=== PATIENT | female | born 1950 | race Caucasian/White ===

== ENCOUNTER 2018-09-07 14:57 | Observation (INO) ==
[2018-09-07 15:04] VITALS: BMI 29.7
[2018-09-07 15:35] LABS: BASOPHILS # (AUTO) 0.1 X10^3/uL (0.0-0.1); EOSINOPHILS # (AUTO) 0.2 x10^3/uL (0.0-0.2); EOSINOPHILS % (AUTO) 1.7 % (0.9-2.9); HEMOGLOBIN 14.3 g/dL (12.0-16.0); LYMPHOCYTES # (AUTO) 3.7 X10^3/uL (1.3-2.9); LYMPHOCYTES % (AUTO) 38.1 % (21.0-51.0); MEAN CORPUSCULAR HEMOGLOBIN 29.4 pg (27.0-34.0); MEAN CORPUSCULAR VOLUME 86.3 fL (80.0-100.0); MEAN PLATELET VOLUME 9.2 fL (7.4-11.0); MONOCYTES # (AUTO) 0.8 x10^3/uL (0.3-0.8); MONOCYTES % (AUTO) 8.4 % (0.0-13.0); NEUTROPHILS % (AUTO) 50.8 % (42.0-75.0); PLATELET COUNT 232 X10^3/uL (150.0-450.0); RED BLOOD COUNT 4.88 X10^6/uL (3.5-5.4); RED CELL DISTRIBUTION WIDTH 14.2 % (11.6-16.5); WHITE BLOOD COUNT 9.8 X10^3/uL (3.6-10.0)
[2018-09-07] MEDS ORDERED: ZOFRAN INJ 4 MG VIAL IVP ONE (15:46)
[2018-09-07] MEDS ORDERED: ZOFRAN INJ 4 MG VIAL ONE (15:47)
[2018-09-07 15:50] LABS: BLOOD UREA NITROGEN 18 mg/dL (7-18); CALCIUM 8.8 mg/dL (8.5-10.1); CARBON DIOXIDE 24.6 mmol/L (21-32); CHLORIDE 103 mmol/L (98-107); CREATININE 0.93 mg/dL (0.55-1.02); SODIUM 138 mmol/L (136-145); TROPONIN I < 0.02 ng/mL (0-1.5); eGFR NON BLACK RACES > 60 (>60)
[2018-09-07 15:55] LABS: ALANINE AMINOTRANSFERASE 42 Units/L (12-78); ALBUMIN 3.7 g/dL (3.4-5.0); ALKALINE PHOSPHATASE 82 Units/L (46-116); ASPARTATE AMINO TRANSFERASE 26 Units/L (15-37); CKMB % 1.3 % (<4); CREATINE KINASE 96 Units/L (26-192); CREATINE KINASE MB 1.2 ng/mL (0-4.0); MAGNESIUM 2.1 mg/dL (1.7-2.9); TOTAL PROTEIN 7.6 g/dL (6.4-8.2)
--- NOTE | 2018-09-07 15:58 | RAD ---
Examination: Portable AP chest History: Chest pain Findings: Normal heart size, arteriosclerotic aortic arch, clear lungs and pleural spaces. Sternal wi res are present. Impression: Postsurgical findings. No acute cardiac, pulmonary or pleural lesion demonstrated. Reported By:
--- NOTE | 2018-09-07 17:34 | DR.GENAD ---
HPI Time Seen Time Seen by Provider: 09/07/18 15:11 PCP Primary Care Physician: JOE Complaint/Symptoms Chief Complaint Doctors Comments: Patient admit to concerns of her heart. She admits to feeling funny in her left chest, denies pain maybe pressure. No radiation. Admit to Aortic valve replacement , [place]. Denies family history of heart disease. Chief Complaint:: PT STATED SHE HAS BEEN FEELING FUNNY IN HER CHEST AND FEELS LIKE HER HEART HAS BEEN RACING SINCE LAST NIGHT Source History Provided: Patient Mode of Arrival Mode of Arrival: Ambulatory Timing Onset of Chief Complaint: 09/06/18 PMH PMH Past Medical History: Yes Past Medical History: Anxiety, Arthritis and Hypertension Past Surgical History: Yes Surgical History: Cholecystectomy, Hysterectomy, Ortho Surgery and Other Past Surgical History Comment: HEART VALVE REPLACEMENT Family History History of Family Medical Conditions: No Social History Does patient currently use any type of tobacco product: No Have you used tobacco products in the last 12 months: No Type of Tobacco Use: None Does any household member use tobacco: No Alcohol Use: None Do you use any recreational Drugs:: No Lives With: Family Lives Where: Home infectious screening In the last 2 months have you had wt loss of >10#?: NO Have you had fever, night sweats or hemotysis?: No Have you traveled outside the country in the last 6 months?: No Isolation: Standard PE Vital Signs Vitals: Temperature 98.3 F Pulse Rate [Left Brachial] 74 Pulse Rate 87 Respiratory Rate 20 Blood Pressure [Left Arm] 151/67 Blood Pressure 175/80 O2 Sat by Pulse Oximetry 97 General Limitations: No Limitations General Appearance: Alert and In No Apparent Distress Head Head Exam: Normal Inspection, Atraumatic and Normocephalic Eyes Eye exam: Normal Appearance, PERRL and EOMI ENT ENT Exam: Normal Exam External Ear Exam: Normal External Inspection and Other TM/Canal Exam: Bilateral: Normal Nose Exam: Normal Nose Exam Mouth Exam: Normal Inspection Throat Exam: Normal Inspection Neck Neck Exam: Normal Inspection and Full ROM Chest Chest Inspection: Normal Inspection and Symmetric Chest Wall Rise Respiratory Respiratory Exam: Normal Lung Sounds Bilat Respiratory Exam: Bilateral: Clear to Auscultation Cardiovascular Cardiovascular Exam: Regular Rate and Normal Rhythm Abdominal Exam Abdominal Exam: Normal Inspection, Normal Bowel Sounds and Soft Abdominal Tenderness: negative RUQ, RLQ, LUQ and LLQ Extremities Extremities Exam: Normal Inspection and Full ROM Back Back Exam: Normal Inspection and Full ROM Neurologic Neurological Exam: Alert, Oriented X3 and CN II-XII Intact Psychiatric Psychiatric Exam: Normal Affect, Normal Mood and Depressed Skin Skin Exam: Warm, Dry, Intact and Normal Color COURSE Consultation Called: 17:10 Consultation Comments: Dr. Azevedo agreed to admit for chest pain protocol ROR Labs Reviewed Laboratory Results Reviewed?: Yes Result Diagrams: 09/09/18 04:30 09/09/18 04:30 Laboratory: WBC 6.4 X10^3/uL (3.6-10.0) 09/09/18 04:30 RBC 4.46 X10^6/uL (3.5-5.4) 09/09/18 04:30 Hgb 12.9 g/dL (12.0-16.0) 09/09/18 04:30 Hct 39.0 % (36.0-47.0) 09/09/18 04:30 MCV 87.4 fL (80.0-100.0) 09/09/18 04:30 MCH 28.9 pg (27.0-34.0) 09/09/18 04:30 MCHC 33.0 g/dL (33.0-35.0) 09/09/18 04:30 RDW 14.5 % (11.6-16.5) 09/09/18 04:30 Plt Count 189 X10^3/uL (150.0-450.0) 09/09/18 04:30 MPV 9.8 fL (7.4-11.0) 09/09/18 04:30 Neut % (Auto) 50.6 % (42.0-75.0) 09/09/18 04:30 Lymph % (Auto) 36.1 % (21.0-51.0) 09/09/18 04:30 [place] % (Auto) 10.1 % (0.0-13.0) 09/09/18 04:30 Eos % (Auto) 2.6 % (0.9-2.9) 09/09/18 04:30 Baso % (Auto) 0.6 % (0.2-1.0) 09/09/18 04:30 Neut # (Auto) 3.3 x10^3/uL (2.2-4.8) 09/09/18 04:30 Lymph # (Auto) 2.3 X10^3/uL (1.3-2.9) 09/09/18 04:30 [place] # (Auto) 0.6 x10^3/uL (0.3-0.8) 09/09/18 04:30 Eos # (Auto) 0.2 x10^3/uL (0.0-0.2) 09/09/18 04:30 Baso # (Auto) 0.0 X10^3/uL (0.0-0.1) 09/09/18 04:30 Absolute Nucleated RBC 0.1 /100WBC 09/09/18 04:30 INR Target Range - 09/07/18 15:20 INR 0.93 (0.8-1.3) 09/07/18 15:20 APTT 28.4 SECONDS (22.9-36.5) 09/07/18 15:20 PTT Comment - 09/07/18 15:20 Sodium 143 mmol/L (136-145) 09/09/18 04:30 Corrected Sodium TNP 09/09/18 04:30 Potassium 4.5 mmol/L (3.5-5.1) 09/09/18 04:30 Chloride 109 mmol/L (98-107) H 09/09/18 04:30 Carbon Dioxide 26.1 mmol/L (21-32) 09/09/18 04:30 BUN 14 mg/dL (7-18) 09/09/18 04:30 Creatinine 0.90 mg/dL (0.55-1.02) 09/09/18 04:30 Est GFR (MDRD) Af Amer > 60 (>60) 09/09/18 04:30 Est GFR (MDRD) Non-Af > 60 (>60) 09/09/18 04:30 Glucose 108 mg/dL (65-99) H 09/09/18 04:30 Calcium 8.3 mg/dL (8.5-10.1) L 09/09/18 04:30 Corrected Calcium 9.2 mg/dL (8.5-10.1) 09/09/18 04:30 Magnesium 2.1 mg/dL (1.7-2.9) 09/08/18 03:07 Total Bilirubin 0.20 mg/dL (0.2-1.0) 09/09/18 04:30 AST 19 Units/L (15-37) 09/09/18 04:30 ALT 33 Units/L (12-78) 09/09/18 04:30 Alkaline Phosphatase 69 Units/L (46-116) 09/09/18 04:30 Creatine Kinase 80 Units/L (26-192) 09/08/18 03:07 CK-MB (CK-2) < 1.0 ng/mL (0-4.0) 09/08/18 03:07 CK/CKMB % Calc 1.3 % (<4) 09/08/18 03:07 Troponin I < 0.02 ng/mL (0-1.5) 09/08/18 03:07 Total Protein 6.3 g/dL (6.4-8.2) L 09/09/18 04:30 Albumin 2.9 g/dL (3.4-5.0) L 09/09/18 04:30 Globulin 3.4 g/dL (2.5-4.5) 09/09/18 04:30 Albumin/Globulin Ratio 0.9 Ratio (1.1-2.1) L 09/09/18 04:30 Triglycerides 95 mg/dL (0-150) 09/08/18 03:07 Cholesterol 164 mg/dL (0-200) 09/08/18 03:07 LDL Cholesterol, Calc 98 mg/dL (0-100) 09/08/18 03:07 HDL Cholesterol 47 mg/dL (40-60) 09/08/18 03:07 Cholesterol/HDL Ratio 3.5 (0.0-5.0) 09/08/18 03:07 Specimen Type Clean catch urine 09/07/18 21:25 Urine Color Yellow (YELLOW) 09/07/18 21: Urine Appearance Clear (CLEAR) 09/07/18 21: Urine pH 5.0 (5.0 - 8.0) 09/07/18: Ur Specific Issue 1.020 (1.000-1.030) 09/07/18 21: Urine Protein 1+ (NEGATIVE) 09/07/18 21:25 Urine Glucose (UA) Negative (NEGATIVE) 09/07/18 21: Urine Ketones Negative (NEGATIVE) 09/07/18 21:25 Urine Occult Blood 1+ (NEGATIVE) 09/07/18 21:25 Urine Nitrite Negative (NEGATIVE) 09/07/18 21:25 Urine Bilirubin Negative (NEGATIVE) 09/07/18 21:25 Urine Urobilinogen Normal (NORMAL) 09/07/18 21:25 Ur Leukocyte Esterase 1+ (NEGATIVE) 09/07/18 21:25 Urine RBC 0-2 /HPF (NONE SEEN) 09/07/18 21:25 Urine WBC 0-2 /HPF (NONE SEEN) 09/07/18 21:25 Ur Squamous Epith Cells Few /HPF (NEGATIVE) 09/07/18 21:25 Urine Bacteria Negative /HPF (NEGATIVE) 09/07/18 21:25 Ur Culture Indicated? No/not indicated 09/07/18 21:25 XRAY XRAY Findings: Chest: no acute abnormality Diagnosis Discharge Problem: Chest pain, rule out acute myocardial infarction ADDITIONAL NOTES Additional Notes Additional Notes: Patient admitted for chest pain protocol
[2018-09-07] MEDS ORDERED: MORPHINE SULFATE INJ 2 MG INJ IVP PRN (18:11)
[2018-09-07] MEDS: NS 1000 ML 1,000 ML IV SCH (18:27)
[2018-09-07] MEDS ORDERED: FLUVIRIN IM ONE (20:00)
[2018-09-07 21:21] LABS: CREATINE KINASE 78 Units/L (26-192); CREATINE KINASE MB < 1.0 ng/mL (0-4.0); TROPONIN I < 0.02 ng/mL (0-1.5)
[2018-09-07 21:27] LABS: CKMB % 1.3 % (<4)
[2018-09-07 21:44] LABS: BILIRUBIN,URINE NEGATIVE (NEGATIVE); BLOOD/HEMOGLOBIN,URINE 1+ (NEGATIVE); GLUCOSE, URINE NEGATIVE (NEGATIVE); KETONES,URINE NEGATIVE (NEGATIVE); LEUKOCYTE ESTERASE ,URINE 1+ (NEGATIVE); NITRITES,URINE NEGATIVE (NEGATIVE); PROTEIN,URINE 1+ (NEGATIVE); UROBILINOGEN,URINE NORMAL (NORMAL)
[2018-09-07 21:50] LABS: APPEARANCE,URINE CLEAR (CLEAR); COLOR,URINE YELLOW (YELLOW)
[2018-09-07 21:51] LABS: BACTERIA,URINE NEGATIVE /HPF (NEGATIVE); RBC,URINE 0-2 /HPF (NONE SEEN); SQUAMOUS EPITHELIAL CELL,UR FEW /HPF (NEGATIVE)
[2018-09-07] MEDS: TYLENOL 325 MG TAB PO PRN (22:00)
[2018-09-08 03:20] LABS: BASOPHILS # (AUTO) 0.1 X10^3/uL (0.0-0.1); BASOPHILS % (AUTO) 1.2 % (0.2-1.0); EOSINOPHILS # (AUTO) 0.2 x10^3/uL (0.0-0.2); HEMATOCRIT 40.7 % (36.0-47.0); HEMOGLOBIN 13.7 g/dL (12.0-16.0); LYMPHOCYTES # (AUTO) 3.5 X10^3/uL (1.3-2.9); LYMPHOCYTES % (AUTO) 45.1 % (21.0-51.0); MEAN CORPUSCULAR HEMOGLOBIN 29.2 pg (27.0-34.0); MEAN CORPUSCULAR HGB CONC 33.6 g/dL (33.0-35.0); MEAN CORPUSCULAR VOLUME 86.7 fL (80.0-100.0); MEAN PLATELET VOLUME 9.2 fL (7.4-11.0); MONOCYTES # (AUTO) 0.7 x10^3/uL (0.3-0.8); MONOCYTES % (AUTO) 9.2 % (0.0-13.0); NEUTROPHILS # (AUTO) 3.3 x10^3/uL (2.2-4.8); NEUTROPHILS % (AUTO) 42.5 % (42.0-75.0); PLATELET COUNT 208 X10^3/uL (150.0-450.0); RED CELL DISTRIBUTION WIDTH 14.6 % (11.6-16.5); WHITE BLOOD COUNT 7.7 X10^3/uL (3.6-10.0)
[2018-09-08 03:39] LABS: ALANINE AMINOTRANSFERASE 37 Units/L (12-78); ALBUMIN 3.3 g/dL (3.4-5.0); ALKALINE PHOSPHATASE 76 Units/L (46-116); ASPARTATE AMINO TRANSFERASE 24 Units/L (15-37); BLOOD UREA NITROGEN 16 mg/dL (7-18); CALCIUM 8.4 mg/dL (8.5-10.1); CARBON DIOXIDE 26.7 mmol/L (21-32); CHLORIDE 107 mmol/L (98-107); CHOL/HDL RATIO 3.5 (0.0-5.0); CHOLESTEROL 164 mg/dL (0-200); CKMB % 1.3 % (<4); CREATINE KINASE 80 Units/L (26-192); CREATINE KINASE MB < 1.0 ng/mL (0-4.0); CREATININE 1.02 mg/dL (0.55-1.02); HDL CHOLESTEROL 47 mg/dL (40-60); MAGNESIUM 2.1 mg/dL (1.7-2.9); SODIUM 142 mmol/L (136-145); TOTAL PROTEIN 6.9 g/dL (6.4-8.2); TRIGLYCERIDES 95 mg/dL (0-150); TROPONIN I < 0.02 ng/mL (0-1.5); eGFR NON BLACK RACES 57 (>60)
[2018-09-08] MEDS: NS 1000 ML 1,000 ML IV SCH ×2 (06:10→20:12)
[2018-09-08] MEDS: TYLENOL 325 MG TAB PO PRN (08:16)
[2018-09-08] MEDS: CELEXA PO SCH (08:17)
[2018-09-08] MEDS: ZETIA TAB 10 MG PO SCH (08:17)
[2018-09-08] MEDS: ASPIRIN EC 81 MG PO SCH (08:17)
[2018-09-08] MEDS ORDERED: ZESTRIL TAB 10 MG PO SCH (09:00)
[2018-09-08] MEDS: FIORICET TAB PO PRN ×2 (12:46→23:40)
[2018-09-08] MEDS: TOPROL XL PO SCH (14:16)
[2018-09-09 05:21] LABS: BASOPHILS % (AUTO) 0.6 % (0.2-1.0); EOSINOPHILS # (AUTO) 0.2 x10^3/uL (0.0-0.2); EOSINOPHILS % (AUTO) 2.6 % (0.9-2.9); HEMOGLOBIN 12.9 g/dL (12.0-16.0); LYMPHOCYTES # (AUTO) 2.3 X10^3/uL (1.3-2.9); LYMPHOCYTES % (AUTO) 36.1 % (21.0-51.0); MEAN CORPUSCULAR HEMOGLOBIN 28.9 pg (27.0-34.0); MEAN CORPUSCULAR VOLUME 87.4 fL (80.0-100.0); MEAN PLATELET VOLUME 9.8 fL (7.4-11.0); MONOCYTES # (AUTO) 0.6 x10^3/uL (0.3-0.8); MONOCYTES % (AUTO) 10.1 % (0.0-13.0); NEUTROPHILS # (AUTO) 3.3 x10^3/uL (2.2-4.8); NEUTROPHILS % (AUTO) 50.6 % (42.0-75.0); PLATELET COUNT 189 X10^3/uL (150.0-450.0); RED BLOOD COUNT 4.46 X10^6/uL (3.5-5.4); RED CELL DISTRIBUTION WIDTH 14.5 % (11.6-16.5); WHITE BLOOD COUNT 6.4 X10^3/uL (3.6-10.0)
[2018-09-09 05:29] LABS: ALANINE AMINOTRANSFERASE 33 Units/L (12-78); ALBUMIN 2.9 g/dL (3.4-5.0); ALKALINE PHOSPHATASE 69 Units/L (46-116); ASPARTATE AMINO TRANSFERASE 19 Units/L (15-37); BLOOD UREA NITROGEN 14 mg/dL (7-18); CALCIUM 8.3 mg/dL (8.5-10.1); CARBON DIOXIDE 26.1 mmol/L (21-32); CHLORIDE 109 mmol/L (98-107); COR CA(FOR HYPOALB) 9.2 mg/dL (8.5-10.1); SODIUM 143 mmol/L (136-145); TOTAL PROTEIN 6.3 g/dL (6.4-8.2); eGFR NON BLACK RACES > 60 (>60)
[2018-09-09] MEDS: ZETIA TAB 10 MG PO SCH (08:24)
[2018-09-09] MEDS: ASPIRIN EC 81 MG PO SCH (08:24)
[2018-09-09] MEDS: TOPROL XL PO SCH (08:24)
[2018-09-09] MEDS: CELEXA PO SCH (08:25)
--- NOTE | 2018-09-09 09:59 | DR.CONSULT ---
CONSULT Consultation for Day of: Date: 09/09/18 Chief Complaint Chief Complaint: Full consult dictated please see the dictated report. Allergies Allergies Allergy/AdvReac Type Severity Reaction Status Date / Time Penicillins Allergy Verified 09/07/18 14:58 Past Medical History Past Medical History: Anxiety, Arthritis and Hypertension Past Surgical History Surgical History: Cholecystectomy, Hysterectomy, Ortho Surgery and Other Family History Family Medical History: Coronary Artery Disease and Heart Failure Social History Does patient currently use any type of tobacco product: No Have you used tobacco products in the last 12 months: No Type of Tobacco Use: None How many years tobacco product used: 20 Does any household member use tobacco: No Alcohol Use: None Drug Use: None Medications Home Medications: Penicillins Allergy (Verified 09/07/18 14:58) CONTINUE taking the following medications aspirin [Aspir-81] 81 mg PO DAILY 09/07/18 [History] citalopram 20 mg PO DAILY 09/07/18 [History] ezetimibe 10 mg PO DAILY 09/07/18 [History] lisinopril 10 mg PO DAILY 09/07/18 [History] meloxicam 15 mg PO DAILY 09/07/18 [History] Physical Exam Vital Signs: Temperature 98.3 F Pulse Rate [Left Brachial] 74 Pulse Rate 87 Respiratory Rate 20 Blood Pressure [Left Arm] 151/67 Blood Pressure 175/80 O2 Sat by Pulse Oximetry 97 Cardiovascular: S4, Systolic and Murmur (3/6 systolic ejection murmur at the base and upper left sternal border radiating to the neck. PMI nondisplaced. Loud bilateral carotid bruits transmitted from the base of the heart.) Plan Plan: Impression: #1 recurrent palpitations in a patient with a remote history of paroxysmal atrial fibrillation and recent documentation of 10 beat run of SVT on Holter monitoring. #2 status post aortic valve replacement in 2008 with a prior bioprosthetic aortic valve. #3 hypertension stable at this time. Recommendations and plans: We would recommend repeating her echocardiogram with Doppler to reassess her aortic valve gradient. If this is stable on there are no new wall motion abnormalities she can be discharged home and we will arrange for the patient to have an event monitor done over a 30-day. As an outpatient. We will review her medications and recommend she be discharged on a calcium channel ryan for her SVT. Follow-up with me in the office after the event monitor has been completed for 1 month. Thank you for the interesting referral sincerely Dr. Kodak Weiner
[2018-09-09 12:03] VITALS: BP 121/59
--- NOTE | 2018-09-13 08:48 | DR.H&P ---
H&P - History & Physical for Day of: H&P Date: 09/07/18 - Chief Complaint Chief Complaint: CHEST PAIN - History of Present Illness History of Present Illness: IS A 68 YEAR OLD PATIENT OF . SHE PRESENTED TO THE EMERGENCY ROOM WITH COMPLAINTS OF CHEST PAIN PRESSURE AND INCREASED HEART RATE. SHE REPORTS THAT SYMPTOMS STARTED LAST NIGHT. SHE HAS A PAST MEDICAL HISTORY OF AN AORTIC VALVE REPLACEMENT IN 2008. OTHER MEDICAL HISTORY INCLUDES ANXIETY, ARTHRITIS, AND HTN. ON ARRIVAL, VITALS WERE 98.6-87-16-99%-175/80. LABS WERE OBTAINED. ABNORMAL LAB VALUES INCLUDE THE FOLLOWING: NEUT 5.0, LYMPH # 3.7, GLUCOSE 103, A/G RATIO 0.9. CARDIAC ENZYMES WITHIN NORMAL LIMITS. CHEST XRAY REVEALED: Normal heart size, arteriosclerotic aortic arch, clear lungs and pleural spaces. Sternal wires are present. EKG REVEALED: NORMAL SINUS RHYTHM WITH HR 73. SHE WAS ADMITTED TO THE HOSPITAL FOR FURTHER EVALUATION AND TREATMENT OF CHEST PAIN R/O ACUTE MYOCARDIAL INFARCTION. SHE WAS STARTED ON NORMAL SALINE AT 75ML/HR, MORPHINE 2MG IV Q4-6 HR PRN, ZOFRAN 4MG PRN NAUSEA, AND HOME MEDICATIONS WERE RESUMED. WE WILL OBTAIN SERIAL CARDIAC ENZYMES AND EKGS. WE PLAN TO FOLLOW UP WITH AM LABS AND CONTINUE TO MONITOR PATIENT. - Past Medical History Past Medical History: Hypertension, Anxiety, Arthritis - Past Surgical History Surgical History: Cholecystectomy, Hysterectomy, Ortho Surgery, Other - Family History Family Medical History: Coronary Artery Disease, Heart Failure - Social History Does patient currently use any type of tobacco product: No Have you used tobacco products in the last 12 months: No Type of Tobacco Use: None How many years tobacco product used: 20 Does any household member use tobacco: No Alcohol Use: None Drug Use: None - Medications Home Medications: Penicillins Allergy (Verified 09/07/18 14:58) CONTINUE taking the following medications aspirin [Aspir-81] 81 mg PO DAILY 09/07/18 [History] citalopram 20 mg PO DAILY 09/07/18 [History] ezetimibe 10 mg PO DAILY 09/07/18 [History] lisinopril 10 mg PO DAILY 09/07/18 [History] meloxicam 15 mg PO DAILY 09/07/18 [History] New Prescriptions metoprolol succinate 12.5 mg PO DAILY #30 tab 09/09/18 [Rx] - Review of Systems Constitutional: Weakness Eyes: No Symptoms Reported ENT: No Symptoms Reported Respiratory: Shortness of Breath Cardiovascular: Chest Pain, See HPI, Palpitations Gastrointestinal: Nausea Genitourinary: No Symptoms Reported Musculoskeletal: No Symptoms Reported Skin: No Symptoms Reported Neurological: Weakness - Physical Exam Vital Signs: Temperature 98.6 F Pulse Rate [Left Brachial] 66 Pulse Rate 87 Respiratory Rate 18 Blood Pressure [Left Arm] 121/59 Blood Pressure 175/80 O2 Sat by Pulse Oximetry 97 Oriented: Normal Eyes: Normal Ear: Normal Nose: Normal Throat: Normal Respiratory: Diminished Throughout Cardiovascular: Normal. negative: S3, S4, Murmur : Normal Auscultation: Bowel Sounds: Normal Palpation: Normal Tenderness: Normal Skin: Normal Musculoskeletal: Normal Psychiatric: Normal Mood Description: Calm Affect: Normal Speech Pattern: Clear - Assessment/Plan (1) Chest pain, rule out acute myocardial infarction Status: Acute Plan: OBTAIN SERIAL CARDIAC ENZYMES AND EKGS, CONTINUE TO MONITOR - Allergies Allergies/Adverse Reactions: Allergies Allergy/AdvReac Type Severity Reaction Status Date / Time Penicillins Allergy Verified 09/07/18 14:58
--- NOTE | 2018-09-13 08:54 | PCM.PROG ---
Progress Note - Progress Note for Day of Date of Exam: 09/08/18 - Subjective Subjective: WAS ADMITTED FOR CHEST PAIN, RULE OUT ACUTE MYOCARDIAL INFARCTION. TODAY, SHE IS ALERT AND ORIENTED, LYING IN BED ON MORNING ROUNDS. SHE CONTINUES WITH COMPLAINTS OF WEAKNESS AND CHEST FEELING FUNNY. SHE REPORTS THAT SHE FEELS LIKE HER HEART IS RUNNING AWAY FROM HER AT TIMES. SHE ALSO REPORTS A HEADACHE. ON EXAMINATION, HEART IS REGULAR IN RATE AND RHYTHM. BILATERAL LUNGS ARE NOTED WITH DIMINISHED LUNG SOUNDS THROUGHOUT. ABDOMEN IS ROUND, SOFT, AND NON-TENDER WITH NORMAL BOWEL SOUNDS NOTED IN ALL QUADRANTS. HER VITLAS THIS MORNING ARE 98.8-74-20-96%-138/63. LABS WERE OBTAINED. ABNORMAL LAB VALUES INCLUDE THE FOLLOWING: GLUCOSE 106, CALCIUM 8.4, ALBUMIN 3.3. CARDIAC ENZYMES HAVE BEEN WITHIN NORMAL LIMITS. MOST RECENT EKG REVEALS: SINUS RHYTHM WITH HR 73. TODAY, WE WILL DISCONTINUE THE LISINOPRIL THAT SHE IS CURRENTLY TAKING AND START METOPROLOL 12.5MG DAILY. WE WILL CONSULT , CREDIT PROFESSIONAL. OTHERWISE, WE WILL FOLLOW UP WITH AM LABS AND CONTINUE TO MONITOR PATIENT. - Past Medical Family Social History Past Med/Fam/Surg Hx: No changes since H&P Allergies: Allergies Penicillins Allergy (Verified 09/07/18 14:58) - Review of Systems ROS: No change since H&P - Vital Signs and I&O's Vital Signs: Temperature 98.6 F Pulse Rate [Left Brachial] 66 Pulse Rate 87 Respiratory Rate 18 Blood Pressure [Left Arm] 121/59 Blood Pressure 175/80 O2 Sat by Pulse Oximetry 97 - Physical Exam Oriented: Normal Eyes: Normal Ear: Normal Nose: Normal Throat: Normal Cardiovascular: Normal. negative: S3, S4, Murmur : Normal Auscultation: Bowel Sounds: Normal Tenderness: Normal Skin: Normal Musculoskeletal: Normal Psychiatric: Normal Mood Description: Calm Affect: Normal Speech Pattern: Clear - Laboratory and Diagnostics Result Diagrams: 09/09/18 04:30 09/09/18 04:30 Labs: Laboratory WBC 6.4 X10^3/uL (3.6-10.0) 09/09/18 04:30 RBC 4.46 X10^6/uL (3.5-5.4) 09/09/18 04:30 Hgb 12.9 g/dL (12.0-16.0) 10/22/18 04:30 Hct 39.0 % (36.0-47.0) 09/09/18 04:30 MCV 87.4 fL (80.0-100.0) 09/09/18 04:30 MCH 28.9 pg (27.0-34.0) 09/09/18 04:30 MCHC 33.0 g/dL (33.0-35.0) 09/09/18 04:30 RDW 14.5 % (11.6-16.5) 09/09/18 04:30 Plt Count 189 X10^3/uL (150.0-450.0) 09/09/18 04:30 MPV 9.8 fL (7.4-11.0) 09/09/18 04:30 Neut % (Auto) 50.6 % (42.0-75.0) 09/09/18 04:30 Lymph % (Auto) 36.1 % (21.0-51.0) 09/09/18 04:30 [place] % (Auto) 10.1 % (0.0-13.0) 09/09/18 04:30 Eos % (Auto) 2.6 % (0.9-2.9) 09/09/18 04:30 Baso % (Auto) 0.6 % (0.2-1.0) 09/09/18 04:30 Neut # (Auto) 3.3 x10^3/uL (2.2-4.8) 09/09/18 04:30 Lymph # (Auto) 2.3 X10^3/uL (1.3-2.9) 09/09/18 04:30 [place] # (Auto) 0.6 x10^3/uL (0.3-0.8) 09/09/18 04:30 Eos # (Auto) 0.2 x10^3/uL (0.0-0.2) 09/09/18 04:30 Baso # (Auto) 0.0 X10^3/uL (0.0-0.1) 09/09/18 04:30 Absolute Nucleated RBC 0.1 /100WBC 09/09/18 04:30 INR Target Range - 09/07/18 15:20 INR 0.93 (0.8-1.3) 09/07/18 15:20 APTT 28.4 SECONDS (22.9-36.5) 09/07/18 15:20 PTT Comment - 09/07/18 15:20 Sodium 143 mmol/L (136-145) 09/09/18 04:30 Corrected Sodium TNP 09/09/18 04:30 Potassium 4.5 mmol/L (3.5-5.1) 09/09/18 04:30 Chloride 109 mmol/L (98-107) H 09/09/18 04:30 Carbon Dioxide 26.1 mmol/L (21-32) 09/09/18 04:30 BUN 14 mg/dL (7-18) 09/09/18 04:30 Creatinine 0.90 mg/dL (0.55-1.02) 09/09/18 04:30 Est GFR (MDRD) Af Amer > 60 (>60) 09/09/18 04:30 Est GFR (MDRD) Non-Af > 60 (>60) 09/09/18 04:30 Glucose 108 mg/dL (65-99) H 09/09/18 04:30 Calcium 8.3 mg/dL (8.5-10.1) L 09/09/18 04:30 Corrected Calcium 9.2 mg/dL (8.5-10.1) 09/09/18 04:30 Magnesium 2.1 mg/dL (1.7-2.9) 09/08/18 03:07 Total Bilirubin 0.20 mg/dL (0.2-1.0) 09/09/18 04:30 AST 19 Units/L (15-37) 09/09/18 04:30 ALT 33 Units/L (12-78) 09/09/18 04:30 Alkaline Phosphatase 69 Units/L (46-116) 09/09/18 04:30 Creatine Kinase 80 Units/L (26-192) 09/08/18 03:07 CK-MB (CK-2) < 1.0 ng/mL (0-4.0) 09/08/18 03:07 CK/CKMB % Calc 1.3 % (<4) 09/08/18 03:07 Troponin I < 0.02 ng/mL (0-1.5) 09/08/18 03:07 Total Protein 6.3 g/dL (6.4-8.2) L 09/09/18 04:30 Albumin 2.9 g/dL (3.4-5.0) L 09/09/18 04:30 Globulin 3.4 g/dL (2.5-4.5) 09/09/18 04:30 Albumin/Globulin Ratio 0.9 Ratio (1.1-2.1) L 09/09/18 04:30 Triglycerides 95 mg/dL (0-150) 09/08/18 03:07 Cholesterol 164 mg/dL (0-200) 09/08/18 03:07 LDL Cholesterol, Calc 98 mg/dL (0-100) 09/08/18 03:07 HDL Cholesterol 47 mg/dL (40-60) 09/08/18 03:07 Cholesterol/HDL Ratio 3.5 (0.0-5.0) 09/08/18 03:07 Specimen Type Clean catch urine 09/07/18 21: Urine Color Yellow (YELLOW) 09/07/18 21: Urine Appearance Clear (CLEAR) 09/07/18 21: Urine pH 5.0 (5.0 - 8.0) 09/07/18 21:25 Ur Specific [place] 1.020 (1.000-1.030) 09/07/18 21: Urine Protein 1+ (NEGATIVE) 09/07/18: Urine Glucose (UA) Negative (NEGATIVE) 09/07/18 21: Urine Ketones Negative (NEGATIVE) 09/07/18 21: Urine Occult Blood 1+ (NEGATIVE) 09/07/18: Urine Nitrite Negative (NEGATIVE) 09/07/18: Urine Bilirubin Negative (NEGATIVE) 09/07/18 21:25 Urine Urobilinogen Normal (NORMAL) 09/07/18 21:25 Ur Leukocyte Esterase 1+ (NEGATIVE) 09/07/18: Urine RBC 0-2 /HPF (NONE SEEN) 09/07/18:25 Urine WBC 0-2 /HPF (NONE SEEN) 09/07/18 21:25 Ur Squamous Epith Cells Few /HPF (NEGATIVE) 09/07/18 21:25 Urine Bacteria Negative /HPF (NEGATIVE) 09/07/18 21:25 Ur Culture Indicated? No/not indicated 09/07/18:25 - Plan (1) Chest pain, rule out acute myocardial infarction Status: Acute Plan: OBTAIN SERIAL CARDIAC ENZYMES AND EKGS, METOPROLOL 12.5MG PO DAILY, CONSULT CARDIOLOGY, CONTINUE TO MONITOR
--- NOTE | 2018-10-23 21:34 | DR.CARTERD ---
- Discharge Summary for: Discharge Summary for Date of:: 09/09/18 - Admission Date Date of Admission: 09/07/18 - Admission Diagnoses Admission Diagnosis: (1) Chest pain, rule out acute myocardial infarction - Discharge Date Discharge Date: 11/09/18 - Discharge Diagnoses Discharge Diagnosis: (1) Chest pain, rule out acute myocardial infarction - Hospital Course Hospital Course: DAY ONE, IS A 68 YEAR OLD PATIENT OF . SHE PRESENTED TO THE EMERGENCY ROOM WITH COMPLAINTS OF CHEST PAIN PRESSURE AND INCREASED HEART RATE. SHE REPORTED THAT SYMPTOMS STARTED LAST NIGHT. SHE HAS A PAST MEDICAL HISTORY OF AN AORTIC VALVE REPLACEMENT IN 2008. OTHER MEDICAL HISTORY INCLUDES ANXIETY, ARTHRITIS, AND HTN. ON ARRIVAL, VITALS WERE 98.6-87-16-99%-175/80. LABS WERE OBTAINED. ABNORMAL LAB VALUES INCLUDE THE FOLLOWING: NEUT 5.0, LYMPH # 3.7, GLUCOSE 103, A/G RATIO 0.9. CARDIAC ENZYMES WITHIN NORMAL LIMITS. CHEST XRAY REVEALED: Normal heart size, arteriosclerotic aortic arch, clear lungs and pleural spaces. Sternal wires are present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ecommendations and plans: We would recommend repeating her echocardiogram with Doppler to reassess her aortic valve gradient. If this is stable on there are no new wall motion abnormalities she can be discharged home and we will arrange for the patient to have an event monitor done over a 30-day. As an outpatient. We will review her medications and recommend she be discharged on a calcium channel ryan for her SVT. Follow-up with me in the office after the event monitor has been completed for 1 month. PATIENT IS FEELING BETTER TODAY. VITALS ARE STABLE AND LABS ARE WITHIN NORMAL LIMITS FOR PATIENT. CARDIAC ENZYMES HAVE BEEN NORMAL. WE PLANNED FOR DISCHARGE. INSTRUCTI ONS FOR MEDICATIONS AND FOLLOW UPS WERE DISCUSSED WITH PATIENT AND FAMILY, BOTH VOICED UNDERSTANDING. PATIENT DISCHARGED HOME IN STABLE CONDITION WITH FAMILY. - Discharge Medications Discharge Medications: Home Medication List aspirin [Aspir-81] 81 mg PO DAILY 09/07/18 [History] citalopram 20 mg PO DAILY 09/07/18 [History] ezetimibe 10 mg PO DAILY 09/07/18 [History] lisinopril 10 mg PO DAILY 09/07/18 [History] meloxicam 15 mg PO DAILY 09/07/18 [History] metoprolol succinate 12.5 mg PO DAILY #30 tab 09/09/18 [Rx] Prescriptions: metoprolol succinate Naseem Azevedo - Discharge Disposition Discharge Disposition: PATIENT TO FOLLOW UP WITH PCP. DR. DIAZ IN ONE WEEK. PATIENT TO FOLLOW UP WITH DR. POOLE AT THE NEXT AVAILABLE APPOINTMENT TIME.
== END 2018-09-09 14:55 | disposition home or self-care (01) ==
LOC: ER 14:57 → MED/SURG 17:42 → INTOOBSV 17:42 → MED/SURG 17:58
PROVIDERS: ADMIT Internal Medicine; ATTEND Internal Medicine
DX: F41.8 Other specified anxiety disorders; I10 Essential (primary) hypertension; R06.02 Shortness of breath; M13.89 Other specified arthritis, multiple sites; Z79.01 Long term (current) use of anticoagulants; Z79.899 Other long term (current) drug therapy; Z23 Encounter for immunization; R07.89 Other chest pain; R55 Syncope and collapse
CPT/HCPCS: 36415; 71010; 71045; 80053; 80061; 81001; 82550; 82553; 83735; 84484; 85025; 85610; 85730; 90686; 93005; 93225; 93306; 94760; 96365; 96367; 96372; 96374; 99284; A4216; A4222; G0378; J2405; J3490; J7030

== ENCOUNTER 2025-10-23 20:25 | Observation (INO) ==
--- NOTE | 2025-10-23 20:38 | DR.DIZZY ---
HPI Time seen Time Seen by Provider: 10/23/25 20:36 Complaint Chief Complaint Doctor Comments: This patient complained of dizziness with shortness of breath since yesterday it got worse today.Denied chest pain. Context Stroke Symptoms: None PMH PMH Past Medical History: Anxiety, Arthritis, Depression, Dyslipidemia, GERD and Hypertension Past Surgical History: Yes Surgical History: CABG/Valve Surgery, Cholecystectomy and Hysterectomy Family History Family Medical History: Diabetes Mellitus and Cancer Social History Do you use any recreational Drugs:: No ROS Review of Systems Constitutional: Other (dizziness,nausea and headache) Eyes: No Symptoms Reported ENTM: No Symptoms Reported Respiratoy: No Symptoms Reported Cardiovascular: No Symptoms Reported Gastrointestinal/Abdominal: Nausea Genitourinary: No Symptoms Reported Neurological: Headache and Dizziness Musculoskeletal: No Symptoms Reported Integumentary: No Symptoms Reported Hematologic/Lymphatic: No Symptoms Reported Endocrine: No Symptoms Reported Psychiatric: No Symptoms Reported All Other Systems: Reviewed and Negative PE Vital Signs Vitals: Vital Signs Temperature 98.3 F Temperature 98.7 F Pulse Rate [Left Brachial] 77 Pulse Rate 81 Pulse Rate 77 Pulse Rate 90 Pulse Rate 85 Pulse Rate 84 Pulse Rate 83 Pulse Rate 83 Pulse Rate 79 Pulse Rate 80 Pulse Rate 80 Pulse Rate 73 Pulse Rate 80 Pulse Rate 83 Pulse Rate 79 Pulse Rate 82 Pulse Rate 79 Pulse Rate 79 Pulse Rate 79 Pulse Rate 88 Pulse Rate 86 Pulse Rate 82 Pulse Rate 75 Pulse Rate 72 Pulse Rate 71 Pulse Rate 73 Pulse Rate 72 Pulse Rate 73 Pulse Rate 68 Pulse Rate 76 Pulse Rate 70 Pulse Rate 68 Pulse Rate 69 Pulse Rate 72 Pulse Rate 72 Pulse Rate 73 Respiratory Rate 22 Respiratory Rate 22 Respiratory Rate 20 Respiratory Rate 20 Respiratory Rate 16 Respiratory Rate 16 Respiratory Rate 18 Respiratory Rate 15 Respiratory Rate 19 Respiratory Rate 15 Respiratory Rate 33 Respiratory Rate 22 Respiratory Rate 22 Respiratory Rate 16 Respiratory Rate 20 Respiratory Rate 24 Respiratory Rate 47 Respiratory Rate 14 Respiratory Rate 20 Blood Pressure [Left Arm] 192/75 Blood Pressure 202/90 Blood Pressure 206/67 Blood Pressure 206/67 Blood Pressure 209/95 Blood Pressure 190/78 Blood Pressure 209/95 Blood Pressure 190/70 Blood Pressure 195/77 Blood Pressure 195/78 Blood Pressure 192/75 Blood Pressure 176/73 Blood Pressure 183/75 Blood Pressure 183/75 Blood Pressure 187/81 Blood Pressure 191/77 Blood Pressure 193/80 Blood Pressure 206/86 Blood Pressure 233/104 Blood Pressure 234/100 Blood Pressure 227/95 Blood Pressure 236/96 Blood Pressure 191/107 Blood Pressure 196/82 Blood Pressure 175/84 O2 Sat by Pulse Oximetry 100 O2 Sat by Pulse Oximetry 89 O2 Sat by Pulse Oximetry 98 O2 Sat by Pulse Oximetry 97 O2 Sat by Pulse Oximetry 97 O2 Sat by Pulse Oximetry 97 O2 Sat by Pulse Oximetry 97 O2 Sat by Pulse Oximetry 97 O2 Sat by Pulse Oximetry 96 O2 Sat by Pulse Oximetry 95 O2 Sat by Pulse Oximetry 94 O2 Sat by Pulse Oximetry 95 O2 Sat by Pulse Oximetry 98 O2 Sat by Pulse Oximetry 96 O2 Sat by Pulse Oximetry 96 O2 Sat by Pulse Oximetry 95 O2 Sat by Pulse Oximetry 99 O2 Sat by Pulse Oximetry 98 O2 Sat by Pulse Oximetry 97 O2 Sat by Pulse Oximetry 98 O2 Sat by Pulse Oximetry 100 O2 Sat by Pulse Oximetry 99 O2 Sat by Pulse Oximetry 98 O2 Sat by Pulse Oximetry 97 O2 Sat by Pulse Oximetry 99 O2 Sat by Pulse Oximetry 99 O2 Sat by Pulse Oximetry 96 O2 Sat by Pulse Oximetry 98 O2 Sat by Pulse Oximetry 98 O2 Sat by Pulse Oximetry 98 O2 Sat by Pulse Oximetry 95 O2 Sat by Pulse Oximetry 96 O2 Sat by Pulse Oximetry 96 O2 Sat by Pulse Oximetry 98 O2 Sat by Pulse Oximetry 97 O2 Sat by Pulse Oximetry 99 General Limitations: Physical Limitation (limited due to dizziness when change in position) General Appearance: Alert and In Distress (mild distress) Head Head Exam: Normal Inspection, Atraumatic and Normocephalic Eyes Eye exam: Normal Appearance and PERRL ENT ENT Exam: Normal Exam and Normal Oropharynx Neck Neck Exam: Normal Inspection Chest Chest Inspection: Normal Inspection Respiratory Respiratory Exam: Normal Lung Sounds Bilat Respiratory Exam: Bilateral: Clear to Auscultation Cardiovascular Cardiovascular Exam: Normal Rhythm Abdominal Exam Abdominal Exam: Normal Inspection Rectal Rectal Exam: Deferred Extremeties Extremities Exam: Normal Inspection Back Back Exam: Normal Inspection Neurologic Neurological Exam: Alert, Oriented X3 and CN II-XII Intact Patient Oriented To: Person, Place and Time Speech: Fluid Speech Motor Strength - LUE: 3/5 Motor Strength - RUE: 3/5 Motor Strength - LLE: 3/5 Motor Strength - RLE: 3/5 Psychiatric Psychiatric Exam: Normal Affect Skin Skin Exam: Warm, Dry and Intact MDM Differential Diagnosis Differential Diagnosis: Central Vertigo and Other (headache and nausea) Differential Diagnosis Comment: hypertension COURSE Treatment Treatment: Patient remained relatively stable during ER visit. She however had a fluctuating blood pressure with continued to rise which required given her antihypertensive tensive medications she got hydralazine 10 mg IV x 2 as well as 1 hydralazine p.o. 10 mg orally. Her blood pressure did come down to about 171/90 stay neck area. We did give her some meclizine 25 mg orally for her dizziness that she she is did state that it did help. We did do a CT scan of her brain that showed no intracranial abnormality. We did do a x-ray of her right wrist that showed no fracture but he did show some chondrocalcinosis of that right wrist also has some degenerative joint disease there. She did have a chest x-ray that showed findings could represent cardiogenic edema or chronic changes did not have any infiltrate. This patient currently only take metoprolol 25 mg daily for her blood pressure and she also takes tramadol and trazodone and meloxicam and lorazepam levocetirizine. Did do orthostatics on this patient and the numbers were about the same in all positions blood pressure averages around 190 systolic over about 80 diastolic in all positions and the heart rate remained in the 70 range. I did talk with Dr. Calvo at [phone] and she is happy patient with further evaluation of her vertigo and her malignant hypertension. Patient was made aware that we have detailed to put her in the hospital for further evaluation of her hypertension and her vertigo. ROR Labs Reviewed Laboratory Results Reviewed?: Yes 10/23/25 20:40 10/23/25 20:40 Laboratory: WBC 9.4 X10^3/uL (3.6-10.0) 10/23/25 20:40 RBC 4.68 X10^6/uL (3.5-5.4) 10/23/25 20:40 Hgb 13.0 g/dL (12.0-16.0) 10/23/25 20:40 Hct 39.1 % (36.0-47.0) 10/23/25 20:40 MCV 83.6 fL (80.0-100.0) 10/23/25 20:40 MCH 27.8 pg (27.0-34.0) 10/23/25 20:40 MCHC 33.2 g/dL (33.0-35.0) 10/23/25 20:40 RDW 14.6 % (11.6-16.5) 10/23/25 20:40 Plt Count 236 X10^3/uL (150.0-450.0) 10/23/25 20:40 MPV 9.1 fL (7.4-11.0) 10/23/25 20:40 Neut % (Auto) 49.4 % (42.0-75.0) 10/23/25 20:40 Lymph % (Auto) 37.6 % (21.0-51.0) 10/23/25 20:40 [place] % (Auto) 8.4 % (0.0-13.0) 10/23/25 20:40 Eos % (Auto) 3.8 % (0.9-2.9) H 10/23/25 20:40 Baso % (Auto) 0.8 % (0.2-1.0) 10/23/25 20:40 Neut # (Auto) 4.6 x10^3/uL (2.2-4.8) 10/23/25 20:40 Lymph # (Auto) 3.5 X10^3/uL (1.3-2.9) H 10/23/25 20:40 [place] # (Auto) 0.8 x10^3/uL (0.3-0.8) 10/23/25 20:40 Eos # (Auto) 0.4 x10^3/uL (0.0-0.2) H 10/23/25 20:40 Baso # (Auto) 0.1 X10^3/uL (0.0-0.1) 10/23/25 20:40 Absolute Nucleated RBC 0.3 /100WBC 10/23/25 20:40 PT 13.4 SECONDS (11.8-14.3) 10/23/25 20:40 INR Target Range - 10/23/25 20:40 INR 1.01 (0.8-1.3) 10/23/25 20:40 APTT 30.3 SECONDS (22.9-36.5) 10/23/25 20:40 PTT Comment - 10/23/25 20:40 Sodium 138 mmol/L (136-145) 10/23/25 20:40 Corrected Sodium TNP 10/23/25 20:40 Potassium 4.0 mmol/L (3.5-5.1) 10/23/25 20:40 Chloride 103 mmol/L (98-107) 10/23/25 20:40 Carbon Dioxide 26.5 mmol/L (21-32) 10/23/25 20:40 BUN 12 mg/dL (7-18) 10/23/25 20:40 Creatinine 0.66 mg/dL (0.55-1.02) 10/23/25 20:40 Est GFR (MDRD) Af Amer > 60 (>60) 10/23/25 20:40 Est GFR (MDRD) Non-Af > 60 (>60) 10/23/25 20:40 Glucose 97 mg/dL (65-99) 10/23/25 20:40 Calcium 8.9 mg/dL (8.5-10.1) 10/23/25 20:40 Corrected Calcium 9.5 mg/dL (8.5-10.1) 10/23/25 20:40 Total Bilirubin 0.40 mg/dL (0.2-1.0) 10/23/25 20:40 AST 20 Units/L (15-37) 10/23/25 20:40 ALT 18 Units/L (12-78) 10/23/25 20:40 Alkaline Phosphatase 71 Units/L (46-116) 10/23/25 20:40 Creatine Kinase 69 Units/L (26-192) 10/23/25 20:40 Troponin I High Sens 13.2 ng/L (4.0-60.0) 10/23/25 23:07 Total Protein 7.4 g/dL (6.4-8.2) 10/23/25 20:40 Albumin 3.3 g/dL (3.4-5.0) L 10/23/25 20:40 Globulin 4.1 g/dL (2.5-4.5) 10/23/25 20:40 Albumin/Globulin Ratio 0.8 Ratio (1.1-2.1) L 10/23/25 20:40 Specimen Type Clean catch urine 10/23/25 21:44 Urine Color Pale yellow (YELLOW) 10/23/25 21:44 Urine Appearance Clear (CLEAR) 10/23/25 21:44 Urine pH 6.0 (5.0 - 8.0) 10/23/25 21:44 Ur Specific [place] 1.020 (1.000-1.030) 10/23/25 21:44 Urine Protein 1+ (NEGATIVE) 10/23/25 21:44 Urine Glucose (UA) Negative (NEGATIVE) 10/23/25 21:44 Urine Ketones Negative (NEGATIVE) 10/23/25 21:44 Urine Blood 2+ (NEGATIVE) 10/23/25 21:44 Urine Nitrite Negative (NEGATIVE) 10/23/25 21:44 Urine Bilirubin Negative (NEGATIVE) 10/23/25 21:44 Urine Urobilinogen Normal (NORMAL) 10/23/25 21:44 Ur Leukocyte Esterase 1+ (NEGATIVE) 10/23/25 21:44 Urine RBC 0-2 /HPF (0-3) 10/23/25 21:44 Urine WBC 0-2 /HPF (0-5) 10/23/25 21:44 Ur Squamous Epith Cells Rare /HPF (NEGATIVE) 10/23/25 21:44 Urine Bacteria Negative /HPF (NEGATIVE) 10/23/25 21:44 Ur Culture Indicated? No/not indicated 10/23/25 21:44 SARS-CoV-2 (PCR) Negative (NEGATIVE) 10/23/25 20:47 Influenza Type A (PCR) Negative (NEGATIVE) 10/23/25 20:47 Influenza Type B (PCR) Negative (NEGATIVE) 10/23/25 20:47 RSV (PCR) Negative (NEGATIVE) 10/23/25 20:47 Opioid Opioid Risk Tool Age ([place] box if 16-45): No History of Preadolescent Sexual Abuse: No Total: 0 Total Score Risk Category: Low Risk Copyright: Jimmy LARRY predicting aberrant behaviors Discharge Plan Diagnosis Discharge Problem: Malignant hypertension, Vertigo Discharge Plan Patient Disposition: 09 ADMITTED INPATIENT Condition: Stable Prescriptions: No Action trazodone 50 mg tablet 50 mg PO QPM meloxicam 15 mg tablet 15 mg PO QDAY pantoprazole 40 mg tablet,delayed release (DR/EC) 40 mg PO QDAY metoprolol succinate 25 mg tablet extended release 24 hr 25 mg PO QDAY ezetimibe 10 mg tablet 10 mg PO QDAY duloxetine 60 mg capsule,delayed release(DR/EC) 60 mg PO QDAY ibandronate 150 mg tablet 150 mg PO QMONTH levocetirizine 5 mg tablet 5 mg PO QPM Eliquis 5 mg tablet 5 mg PO BID lorazepam 0.5 mg tablet 0.5 mg PO BID PRN tramadol 50 mg tablet 50 mg PO BID MDD 2 PRN (Reason: pain) Qty: 10 0RF Health Concerns: Post Hospitalization: new medications and changes needed to prevent readmission or further decline. Pt educated and given instructions on all concerns. Plan of Treatment: Continue with present treatment and follow up plan. Pt is to keep follow up appointment as instructed and take medications as ordered. Orders to Discharge Patient Discharge Orders: Transfer (Routine); Ordered 10/24/25 Ordered By: Hakeem Tran Follow ups/Referrals Follow ups/Referrals: Gretchen Odom [Primary Care Provider, Unknown] - 3 days Instructions Stand Alone Forms: Find Help Web Site, Post Hospital Follow Up Care Print Language: HONDURAN
--- NOTE | 2025-10-23 20:56 | EKG ---
Test Reason : DIZZINESS Blood Pressure : */* mmHG Vent. Rate : 68 BPM Atrial Rate : 68 BPM P-R Int : 150 ms QRS Dur : 72 ms QT Int : 440 ms P-R-T Axes : 56 22 67 degrees QTc Int : 467 ms Normal sinus rhythm Possible Left atrial enlargement Septal infarct , age undetermined Abnormal ECG No previous ECGs available Confirmed by Sim Chavez MD ([id number]) on 10/24/2025 7:41:34 AM Referred By: Confirmed By: Sim Chavez MD
[2025-10-23 20:59] LABS: INR 1.01 (0.8-1.3)
[2025-10-23 21:01] LABS: MEAN PLATELET VOLUME 9.1 fL (7.4-11.0); RED CELL DISTRIBUTION WIDTH 14.6 % (11.6-16.5)
[2025-10-23] MEDS: ANTIVERT TAB 25 MG PO ONE (21:04)
[2025-10-23] MEDS: ZOFRAN INJ 4 MG VIAL IVP ONE (21:04)
[2025-10-23 21:05] LABS: COR CA(FOR HYPOALB) 9.5 mg/dL (8.5-10.1); CREATININE 0.66 mg/dL (0.55-1.02); eGFR NON BLACK RACES > 60 (>60)
--- NOTE | 2025-10-23 21:07 | RAD ---
EXAM: WRIST, RIGHT HISTORY: fell, wrist swollen; PT IN ED VIA WHEELCHAIR WITH C/O DIZZINESS AND NAUSEA. PT STATES SHE HAD A DIZZY SPELL YESTERDAY MORNING THEN IT WENT AWAY. STATES TONIGHT SHE WAS JUST SITTING WATCHING TV AND THE DIZZINESS STARTED AGAIN AND FELT LIKE SHE WAS GOING TO PASS OUT. STATES SHE IS NAUSEATED ALSO. COMPARISON: None available TECHNIQUE: Right wrist radiographs, 3 views, PA, oblique and lateral projections FINDINGS: No fracture or dislocations. Chondrocalcinosis in the TFCC. [id number] degenerative changes in the 1st CMC and scaphotrapezium joints. Carpal bones are in normal alignment. Soft tissues are unremarkable. IMPRESSION: No acute osseous abnormality. THIS IS AN ELECTRONICALLY VERIFIED FINAL REPORT 10/23/2025 9:02 PM - Electronically signed by Constantino Farley MD
--- NOTE | 2025-10-23 21:07 | RAD ---
EXAM: CHEST, 1 VIEW HISTORY: DIZZINESS; PT IN ED VIA WHEELCHAIR WITH C/O DIZZINESS AND NAUSEA. PT STATES SHE HAD A DIZZY SPELL YESTERDAY MORNING THEN IT WENT AWAY. STATES TONIGHT SHE WAS JUST SITTING WATCHING TV AND THE DIZZINESS STARTED AGAIN AND FELT LIKE SHE WAS GOING TO PASS OUT. STATES SHE IS NAUSEATED ALSO. COMPARISON: March 30, 2024 TECHNIQUE: Chest radiographic imaging, AP portable projection, 1 image FINDINGS: No cardiomegaly. Status post median sternotomy and prosthetic aortic valve replacement. Mild increased interstitial markings in the hilar regions. No focal airspace disease. No pleural effusion. No pneumothorax. No acute osseous abnormality. IMPRESSION: Findings could represent mild acute cardiogenic edema and/or chronic changes. No focal consolidation. THIS IS AN ELECTRONICALLY VERIFIED FINAL REPORT 10/23/2025 9:01 PM - Electronically signed by Constantino Farley MD
--- NOTE | 2025-10-23 21:07 | CT ---
EXAM: CT HEAD WITHOUT CONTRAST HISTORY: DIZZINESS; PT IN ED VIA WHEELCHAIR WITH C/O DIZZINESS AND NAUSEA. PT STATES SHE HAD A DIZZY SPELL YESTERDAY MORNING THEN IT WENT AWAY. STATES TONIGHT SHE WAS JUST SITTING WATCHING TV AND THE DIZZINESS STARTED AGAIN AND FELT LIKE SHE WAS GOING TO PASS OUT. STATES SHE IS NAUSEATED ALSO. COMPARISON: None. TECHNIQUE: Axial CT images were obtained through the brain without contrast. Coronal and sagittal reformations were performed. All CT scans at this facility use dose modulation, iterative reconstruction, and/or weight based dosing when appropriate to reduce radiation dose to as low as reasonably achievable. FINDINGS: BRAIN: No evidence for acute bleed. Mcmullen-white matter differentiation is preserved.Mild decreased attenuation within the periventricular white matter and the centrum semiovale is nonspecific but would be consistent with chronic small-vessel ischemic changes. Ventricles have normal size and contour. No shift of midline structures. Basilar cisterns are preserved. No cerebellar tonsillar ectopia. No evidence for acute calvarial findings. MASTOID AIR CELLS: Visualized mastoid air cells are well aerated. PARANASAL SINUSES: Visualized portions of the paranasal sinuses are well aerated. ORBITS: Visualized portions demonstrate no evidence for acute findings. IMPRESSION: No evidence for acute intracranial pathology. Mild chronic small-vessel ischemic changes as noted. Decreased attenuation within the periventricular white matter and the centrum semiovale is nonspecific but would be consistent with chronic small-vessel ischemic changes. THIS IS AN ELECTRONICALLY VERIFIED FINAL REPORT 10/23/2025 8:58 PM - Electronically signed by Erwin Francisco DO
[2025-10-23 22:15] LABS: BLOOD/HEMOGLOBIN,URINE 2+ (NEGATIVE); LEUKOCYTE ESTERASE ,URINE 1+ (NEGATIVE); NITRITES,URINE NEGATIVE (NEGATIVE)
[2025-10-23 22:19] LABS: APPEARANCE,URINE CLEAR (CLEAR); SQUAMOUS EPITHELIAL CELL,UR RARE /HPF (NEGATIVE)
[2025-10-23] MEDS: APRESOLINE TAB 10 MG PO ONE (22:40)
[2025-10-23] MEDS: APRESOLINE INJ 20 MG VIAL IVP ONE (22:56)
[2025-10-24] MEDS: APRESOLINE INJ 20 MG VIAL IVP PRN (03:37)
[2025-10-24] MEDS: ULTRAM PO PRN (04:19)
[2025-10-24 04:21] VITALS: BMI 26.1
[2025-10-24] MEDS: ATIVAN TAB 0.5 MG PO PRN (04:33)
[2025-10-24] MEDS ORDERED: ZOFRAN INJ 4 MG VIAL ONE (04:43)
[2025-10-24] MEDS ORDERED: TOPROL XL PO ONE (04:44)
[2025-10-24] MEDS: ZOFRAN INJ 4 MG VIAL IVP PRN (04:50)
[2025-10-24 05:31] LABS: MEAN PLATELET VOLUME 9.7 fL (7.4-11.0); RED CELL DISTRIBUTION WIDTH 14.8 % (11.6-16.5)
[2025-10-24 05:43] LABS: CREATININE 0.75 mg/dL (0.55-1.02); eGFR NON BLACK RACES > 60 (>60)
[2025-10-24] MEDS ORDERED: CONSULT PHARMACY - POTASSIUM & MAGNESIUM XX SCH (07:00)
[2025-10-24] MEDS ORDERED: PATIENT'S HOME MEDICATION (Ibandronate 150 mg tablet) PO SCH (09:00)
[2025-10-24] MEDS: PROTONIX TAB 40 MG PO SCH (10:24)
[2025-10-24] MEDS: TYLENOL 325 MG TAB PO PRN (10:24)
[2025-10-24] MEDS: TOPROL XL PO SCH (10:24)
[2025-10-24] MEDS: ZETIA TAB 10 MG PO SCH (10:25)
[2025-10-24] MEDS: ELIQUIS PO SCH (10:25)
[2025-10-24] MEDS ORDERED: ZESTRIL TAB 20 MG ONE (10:46)
[2025-10-24] MEDS: ZESTRIL TAB 20 MG PO SCH (10:50)
[2025-10-24] MEDS: K-DUR TAB 20 MEQ PO ONE (10:50)
--- NOTE | 2025-10-24 11:13 | DR.H&P ---
H&P History & Physical for Day of: H&P Date: 10/24/25 Chief Complaint Chief Complaint: headache, dizziness History of Present Illness History of Present Illness: Patient is a 75-year-old female with a past medical history of hypertension, CAD, aortic valve replacement, hyperlipidemia, depression, anxiety and GERD presented with dizziness and headache. She states her symptoms started with dizziness, felt like the room was spinning along with nausea. She does not monitor her blood pressure regularly. ER workup included labs which did not show any pertinent abnormalities. Her blood pressure in the ER was noted to be systolic in the 200s, highest 236/96. She was given IV hydralazine x 2 and then p.o. hydralazine x 1. Her blood pressure did improved to systolic in the 140s. She also got meclizine which helped with her vertigo. CT brain was negative for any acute changes. This morning her blood pressure is elevated in the 180s. She is complaining of headache and dizziness. Denies chest pain or shortness of breath. Lab/imaging reviewed: - WBC 10.9 hemoglobin 14.4 potassium 3.5 creatinine 0.75 Trop x 2 (-) Plan: Continue telemetry and closer monitoring. Add lisinopril 20 mg daily. Check BNP Continue IV hydralazine as needed. Add meclizine. Zofran as needed. Resume home medications. Replace electrolytes as per protocol. Continue pain control. Monitor a.m. labs and imaging. Time spent for clinical assessment, reviewing labs and imaging, physical exam, decision making and documentation greater than 45 minutes. Past Medical History Past Medical History: Anxiety, Arthritis, Depression, Dyslipidemia, GERD and Hypertension Past Surgical History Surgical History: CABG/Valve Surgery, Cholecystectomy, Hysterectomy and Ortho Surgery Family History Family Medical History: Cancer, Coronary Artery Disease and Hypertension Social History Does patient currently use any type of tobacco product: No Have you used tobacco products in the last 12 months: No Type of Tobacco Use: None Does any household member use tobacco: No Alcohol Use: Rarely and Occasionally Drug Use: None Medications Home Medications: Home Medications Medication Instructions Recorded Confirmed Type apixaban 5 mg tablet (Eliquis) 5 mg PO BID 03/30/24 History duloxetine 60 mg capsule,delayed 60 mg PO QDAY 4 10/23/25 History release ezetimibe 10 mg tablet 10 mg PO QDAY 03/30/2410/23 History ibandronate 150 mg tablet 150 mg PO QMONTH 03/30/24 History levocetirizine 5 mg tablet 5 mg PO QPM 03/30/24 History meloxicam 15 mg tablet 15 mg PO QDAY 03/30/2410/23 History metoprolol succinate 25 mg 25 mg PO QDAY 03/30/2404/12 History tablet,extended release 24 hr pantoprazole 40 mg tablet,delayed 40 mg PO QDAY 10/23/25 History release trazodone 50 mg tablet 50 mg PO QPM 03/30/24 History lorazepam 0.5 mg tablet 0.5 mg PO BID PRN 10/23/25 1 12/24/24 History Allergies Allergies Allergy/AdvReac Type Severity Reaction Status Date / Time Penicillins Allergy Verified 10/23/25 20:54 Labs 10/24/25 04:32 10/24/25 04:32 Labs: Laboratory WBC 10.9 X10^3/uL (3.6-10.0) H 10/24/25 04:32 RBC 5.12 X10^6/uL (3.5-5.4) 10/24/25 04:32 Hgb 14.4 g/dL (12.0-16.0) 10/24/25 04:32 Hct 43.0 % (36.0-47.0) 10/24/25 04:32 MCV 84.1 fL (80.0-100.0) 10/24/25 04:32 MCH 28.0 pg (27.0-34.0) 10/24/25 04:32 MCHC 33.4 g/dL (33.0-35.0) 10/24/25 04:32 RDW 14.8 % (11.6-16.5) 10/24/25 04:32 Plt Count 267 X10^3/uL (150.0-450.0) 10/24/25 04:32 MPV 9.7 fL (7.4-11.0) 10/24/25 04:32 Neut % (Auto) 46.9 % (42.0-75.0) 10/24/25 04:32 Lymph % (Auto) 41.8 % (21.0-51.0) 10/24/25 04:32 [place] % (Auto) 10.1 % (0.0-13.0) 10/24/25 04:32 Eos % (Auto) 0.4 % (0.9-2.9) L 10/24/25 04:32 Baso % (Auto) 0.8 % (0.2-1.0) 10/24/25 04:32 Neut # (Auto) 5.1 x10^3/uL (2.2-4.8) H 10/24/25 04:32 Lymph # (Auto) 4.6 X10^3/uL (1.3-2.9) H 10/24/25 04:32 [place] # (Auto) 1.1 x10^3/uL (0.3-0.8) H 10/24/25 04:32 Eos # (Auto) 0.0 x10^3/uL (0.0-0.2) 10/24/25 04:32 Baso # (Auto) 0.1 X10^3/uL (0.0-0.1) 10/24/25 04:32 Absolute Nucleated RBC 0.2 /100WBC 10/24/25 04:32 PT 13.4 SECONDS (11.8-14.3) 10/23/25 20:40 INR Target Range - 10/23/25 20:40 INR 1.01 (0.8-1.3) 10/23/25 20:40 APTT 30.3 SECONDS (22.9-36.5) 10/23/25 20:40 PTT Comment - 10/23/25 20:40 Sodium 139 mmol/L (136-145) 10/24/25 04:32 Corrected Sodium TNP 10/24/25 04:32 Potassium 3.5 mmol/L (3.5-5.1) 10/24/25 04:32 Chloride 102 mmol/L (98-107) 10/24/25 04:32 Carbon Dioxide 29.2 mmol/L (21-32) 10/24/25 04:32 BUN 9 mg/dL (7-18) 10/24/25 04:32 Creatinine 0.75 mg/dL (0.55-1.02) 10/24/25 04:32 Est GFR (MDRD) Af Amer > 60 (>60) 10/24/25 04:32 Est GFR (MDRD) Non-Af > 60 (>60) 10/24/25 04:32 Glucose 104 mg/dL (65-99) H 10/24/25 04:32 Calcium 9.3 mg/dL (8.5-10.1) 10/24/25 04:32 Corrected Calcium TNP 10/24/25 04:32 Magnesium 2.1 mg/dL (2.0-2.9) 10/24/25 04:32 Total Bilirubin 0.60 mg/dL (0.2-1.0) 10/24/25 04:32 AST 20 Units/L (15-37) 10/24/25 04:32 ALT 20 Units/L (12-78) 10/24/25 04:32 Alkaline Phosphatase 74 Units/L (46-116) 10/24/25 04:32 Creatine Kinase 69 Units/L (26-192) 10/23/25 20:40 Troponin I High Sens 13.2 ng/L (4.0-60.0) 10/23/25 23:07 Total Protein 8.0 g/dL (6.4-8.2) 10/24/25 04:32 Albumin 3.6 g/dL (3.4-5.0) 10/24/25 04:32 Globulin 4.4 g/dL (2.5-4.5) 10/24/25 04:32 Albumin/Globulin Ratio 0.8 Ratio (1.1-2.1) L 10/24/25 04:32 Specimen Type Clean catch urine 10/23/25 21:44 Urine Color Pale yellow (YELLOW) 10/23/25 21:44 Urine Appearance Clear (CLEAR) 10/23/25 21:44 Urine pH 6.0 (5.0 - 8.0) 10/23/25 21:44 Ur Specific [place] 1.020 (1.000-1.030) 10/23/25 21:44 Urine Protein 1+ (NEGATIVE) 10/23/25 21:44 Urine Glucose (UA) Negative (NEGATIVE) 10/23/25 21:44 Urine Ketones Negative (NEGATIVE) 10/23/25 21:44 Urine Blood 2+ (NEGATIVE) 10/23/25 21:44 Urine Nitrite Negative (NEGATIVE) 10/23/25 21:44 Urine Bilirubin Negative (NEGATIVE) 10/23/25 21:44 Urine Urobilinogen Normal (NORMAL) 10/23/25 21:44 Ur Leukocyte Esterase 1+ (NEGATIVE) 10/23/25 21:44 Urine RBC 0-2 /HPF (0-3) 10/23/25 21:44 Urine WBC 0-2 /HPF (0-5) 10/23/25 21:44 Ur Squamous Epith Cells Rare /HPF (NEGATIVE) 10/23/25 21:44 Urine Bacteria Negative /HPF (NEGATIVE) 10/23/25 21:44 Ur Culture Indicated? No/not indicated 10/23/25 21:44 SARS-CoV-2 (PCR) Negative (NEGATIVE) 10/23/25 20:47 Influenza Type A (PCR) Negative (NEGATIVE) 10/23/25 20:47 Influenza Type B (PCR) Negative (NEGATIVE) 10/23/25 20:47 RSV (PCR) Negative (NEGATIVE) 10/23/25 20:47 Review of Systems Constitutional: No Symptoms Reported Eyes: No Symptoms Reported ENT: No Symptoms Reported Respiratory: Shortness of Breath Cardiovascular: No Symptoms Reported Gastrointestinal: Nausea Genitourinary: No Symptoms Reported Musculoskeletal: No Symptoms Reported Skin: No Symptoms Reported Neurological: Other (dizziness, headache) Physical Exam Vital Signs: Vital Signs Temperature 98.2 F Temperature 98.2 F Pulse Rate 93 Pulse Rate 98 Pulse Rate 96 Pulse Rate 93 Pulse Rate 89 Pulse Rate 75 Pulse Rate 77 Pulse Rate 82 Respiratory Rate 18 Respiratory Rate 15 Respiratory Rate 21 Respiratory Rate 22 Respiratory Rate 17 Respiratory Rate 14 Respiratory Rate 22 Respiratory Rate 21 Respiratory Rate 21 Blood Pressure 141/61 Blood Pressure 144/68 Blood Pressure 183/77 Blood Pressure 171/72 Blood Pressure 167/73 Blood Pressure 212/90 Blood Pressure 219/96 O2 Sat by Pulse Oximetry 96 O2 Sat by Pulse Oximetry 99 O2 Sat by Pulse Oximetry 99 O2 Sat by Pulse Oximetry 98 O2 Sat by Pulse Oximetry 99 O2 Sat by Pulse Oximetry 97 O2 Sat by Pulse Oximetry 94 O2 Sat by Pulse Oximetry 95 Oriented: Normal Respiratory: Clear Throughout Cardiovascular: Normal and Other (AV noted) Auscultation: Bowel Sounds: Normal Palpation: Normal Tenderness: Normal Skin: Normal Musculoskeletal: Normal Psychiatric: Normal Mood Description: Calm Affect: Normal Speech Pattern: Clear and Appropriate Assessment/Plan (1) Malignant hypertension: Status: Acute (2) Vertigo: Status: Acute (3) CAD (coronary artery disease): Status: Chronic (4) HLD (hyperlipidemia): Qualifiers: Hyperlipidemia type: mixed hyperlipidemia Qualified Code(s): E78.2 - Mixed hyperlipidemia Status: Chronic (5) H/O prosthetic aortic valve replacement: Status: Chronic Review H&P Reviewed: Yes Patient was examined?: Yes
[2025-10-24] MEDS: ANTIVERT TAB 25 MG PO PRN (21:56)
[2025-10-25 05:10] LABS: MEAN PLATELET VOLUME 9.2 fL (7.4-11.0)
[2025-10-25 05:18] LABS: RED CELL DISTRIBUTION WIDTH 14.7 % (11.6-16.5)
[2025-10-25 05:22] LABS: COR CA(FOR HYPOALB) 9.3 mg/dL (8.5-10.1); COR NA(FOR HYPERGLY) 137 mmol/L (136-145); CREATININE 0.81 mg/dL (0.55-1.02); eGFR NON BLACK RACES > 60 (>60)
[2025-10-25] MEDS ORDERED: ZESTRIL TAB 20 MG ONE (09:24)
[2025-10-25 11:40] VITALS: BP 136/63; PULSE 78; RESP 17; TEMP 99; O2SAT 96
--- NOTE | 2025-10-26 10:02 | W.DIS.FURT ---
Summary of Discharge Discharge Summary of Date Date of Exam: 10/25/25 Admission Date Date of Admission: 10/24/25 Admission Diagnosis Patient Problems (Updated 10/24/25 @ 11:12 by Juliana Villa MD) Vertigo (Acute) R42 Malignant hypertension (Acute) I10 Hospital Course: Patient is a 75-year-old female with a past medical history of hypertension, CAD, aortic valve replacement, hyperlipidemia, depression, anxiety and GERD presented with dizziness and headache. She states her symptoms started with dizziness, felt like the room was spinning along with nausea. She does not monitor her blood pressure regularly. ER workup included labs which did not show any pertinent abnormalities. Her blood pressure in the ER was noted to be systolic in the 200s, highest 236/96. She was given IV hydralazine x 2 and then p.o. hydralazine x 1. Her blood pressure did improved to systolic in the 140s. She also got meclizine which helped with her vertigo. CT brain was negative for any acute changes. Labs are monitored daily and electrolytes replaced as needed. She was started on lisinopril daily. Her blood pressure improved. She was doing better and able to ambulate. She was stable to be discharged home on lisinopril and meclizine. She will follow-up with PCP as scheduled. Vital Signs: Vital Signs (72 hours) 10/23/25 20:26 10/23/25 20:37 10/23/25 20:52 Temperature 98.7 F Pulse Rate 73 72 72 Pulse Rate [Left Brachial] Respiratory Rate 20 14 47 H Blood Pressure 175/84 Blood Pressure [Left Arm] O2 Sat by Pulse Oximetry 99 97 98 Oxygen Delivery Method Room Air Oxygen Flow Rate FIO2% 10/23/25 21:00 10/23/25 21:15 10/23/25 21:30 Temperature Pulse Rate 69 68 Pulse Rate [Left Brachial] Respiratory Rate 24 20 Blood Pressure 196/82 Blood Pressure [Left Arm] O2 Sat by Pulse Oximetry 96 96 Oxygen Delivery Method Oxygen Flow Rate FIO2% 10/23/25 21:30 10/23/25 21:46 10/23/25 22:00 Temperature Pulse Rate 70 76 68 Pulse Rate [Left Brachial] Respiratory Rate 16 22 22 Blood Pressure Blood Pressure [Left Arm] O2 Sat by Pulse Oximetry 95 98 Oxygen Delivery Method Oxygen Flow Rate FIO2% 10/23/25 22:00 10/23/25 22:15 10/23/25 22:29 Temperature Pulse Rate 73 72 Pulse Rate [Left Brachial] Respiratory Rate 33 H 15 Blood Pressure 191/107 Blood Pressure [Left Arm] O2 Sat by Pulse Oximetry 98 98 Oxygen Delivery Method Oxygen Flow Rate FIO2% 10/23/25 22:29 10/23/25 22:30 10/23/25 22:30 Temperature Pulse Rate 73 Pulse Rate [Left Brachial] Respiratory Rate 19 Blood Pressure 236/96 227/95 Blood Pressure [Left Arm] O2 Sat by Pulse Oximetry 96 Oxygen Delivery Method Oxygen Flow Rate FIO2% 10/23/25 22:35 10/23/25 22:35 10/23/25 22:45 Temperature Pulse Rate 71 72 Pulse Rate [Left Brachial] Respiratory Rate 15 18 Blood Pressure 234/100 Blood Pressure [Left Arm] O2 Sat by Pulse Oximetry 99 99 Oxygen Delivery Method Oxygen Flow Rate FIO2% 10/23/25 22:45 10/23/25 23:00 10/23/25 23:00 Temperature Pulse Rate 75 Pulse Rate [Left Brachial] Respiratory Rate 16 Blood Pressure 233/104 206/86 Blood Pressure [Left Arm] O2 Sat by Pulse Oximetry 97 Oxygen Delivery Method Oxygen Flow Rate FIO2% 10/23/25 23:15 10/23/25 23:15 10/23/25 23:30 Temperature Pulse Rate 82 Pulse Rate [Left Brachial] Respiratory Rate 16 Blood Pressure 193/80 Blood Pressure [Left Arm] O2 Sat by Pulse Oximetry 98 99 Oxygen Delivery Method Oxygen Flow Rate FIO2% 10/23/25 23:31 10/23/25 23:31 10/23/25 23:45 Temperature Pulse Rate 86 Pulse Rate [Left Brachial] Respiratory Rate Blood Pressure 191/77 187/81 Blood Pressure [Left Arm] O2 Sat by Pulse Oximetry 100 Oxygen Delivery Method Oxygen Flow Rate FIO2% 10/23/25 23:45 10/24/25 00:00 10/24/25 00:00 Temperature Pulse Rate 88 79 Pulse Rate [Left Brachial] Respiratory Rate Blood Pressure 183/75 Blood Pressure [Left Arm] O2 Sat by Pulse Oximetry 98 97 Oxygen Delivery Method Oxygen Flow Rate FIO2% 10/24/25 00:00 10/24/25 00:15 10/24/25 00:26 Temperature 98.3 F Pulse Rate 79 Pulse Rate [Left Brachial] 77 Respiratory Rate 20 Blood Pressure 183/75 Blood Pressure [Left Arm] 192/75 O2 Sat by Pulse Oximetry 98 99 Oxygen Delivery Method Room Air Oxygen Flow Rate FIO2% 10/24/25 00:30 10/24/25 00:30 10/24/25 00:45 Temperature Pulse Rate 79 82 Pulse Rate [Left Brachial] Respiratory Rate Blood Pressure 176/73 Blood Pressure [Left Arm] O2 Sat by Pulse Oximetry 95 96 Oxygen Delivery Method Oxygen Flow Rate FIO2% 10/24/25 01:00 10/24/25 01:00 10/24/25 01:15 Temperature Pulse Rate 79 83 Pulse Rate [Left Brachial] Respiratory Rate Blood Pressure 192/75 Blood Pressure [Left Arm] O2 Sat by Pulse Oximetry 96 98 Oxygen Delivery Method Oxygen Flow Rate FIO2% 10/24/25 01:30 10/24/25 01:30 10/24/25 01:50 Temperature Pulse Rate 80 73 Pulse Rate [Left Brachial] Respiratory Rate Blood Pressure 195/78 Blood Pressure [Left Arm] O2 Sat by Pulse Oximetry 95 94 L Oxygen Delivery Method Oxygen Flow Rate FIO2% 10/24/25 02:00 10/24/25 02:00 10/24/25 02:15 Temperature Pulse Rate 80 80 Pulse Rate [Left Brachial] Respiratory Rate 20 Blood Pressure 195/77 190/70 Blood Pressure [Left Arm] O2 Sat by Pulse Oximetry 95 96 Oxygen Delivery Method Room Air Oxygen Flow Rate FIO2% 10/24/25 02:15 10/24/25 02:20 10/24/25 02:22 Temperature Pulse Rate 79 83 83 Pulse Rate [Left Brachial] Respiratory Rate 22 Blood Pressure 209/95 Blood Pressure [Left Arm] O2 Sat by Pulse Oximetry 97 97 97 Oxygen Delivery Method Room Air Oxygen Flow Rate FIO2% 10/24/25 02:22 10/24/25 02:24 10/24/25 02:24 Temperature Pulse Rate 84 Pulse Rate [Left Brachial] Respiratory Rate Blood Pressure 190/78 209/95 Blood Pressure [Left Arm] O2 Sat by Pulse Oximetry 97 Oxygen Delivery Method Oxygen Flow Rate FIO2% 10/24/25 02:26 10/24/25 02:26 10/24/25 02:30 Temperature Pulse Rate 85 90 Pulse Rate [Left Brachial] Respiratory Rate 22 Blood Pressure 206/67 206/67 Blood Pressure [Left Arm] O2 Sat by Pulse Oximetry 97 98 Oxygen Delivery Method Room Air Oxygen Flow Rate FIO2% 10/24/25 02:30 10/24/25 02:30 10/24/25 02:45 Temperature Pulse Rate 77 81 Pulse Rate [Left Brachial] Respiratory Rate Blood Pressure 202/90 Blood Pressure [Left Arm] O2 Sat by Pulse Oximetry 89 L 100 Oxygen Delivery Method Oxygen Flow Rate FIO2% 10/24/25 03:00 10/24/25 03:00 10/24/25 03:15 Temperature Pulse Rate 85 82 Pulse Rate [Left Brachial] Respiratory Rate Blood Pressure 204/85 Blood Pressure [Left Arm] O2 Sat by Pulse Oximetry 96 95 Oxygen Delivery Method Oxygen Flow Rate FIO2% 10/24/25 03:30 10/24/25 03:30 10/24/25 03:30 Temperature 98.2 F Pulse Rate 77 Pulse Rate [Left Brachial] Respiratory Rate 21 Blood Pressure 219/96 Blood Pressure [Left Arm] O2 Sat by Pulse Oximetry 94 L Oxygen Delivery Method Nasal Cannula Room Air Room Air Oxygen Flow Rate 2 FIO2% 28 10/24/25 03:40 10/24/25 04:00 10/24/25 04:19 Temperature 98.2 F Pulse Rate 75 89 Pulse Rate [Left Brachial] Respiratory Rate 21 22 14 Blood Pressure 212/90 167/73 Blood Pressure [Left Arm] O2 Sat by Pulse Oximetry 97 99 Oxygen Delivery Method Nasal Cannula Nasal Cannula Oxygen Flow Rate 2 2 FIO2% 10/24/25 04:25 10/24/25 04:41 10/24/25 04:45 Temperature Pulse Rate 93 H 90 93 H Pulse Rate [Left Brachial] Respiratory Rate 17 15 16 Blood Pressure 171/72 Blood Pressure [Left Arm] O2 Sat by Pulse Oximetry 98 99 98 Oxygen Delivery Method Nasal Cannula Oxygen Flow Rate 2 FIO2% 10/24/25 05:00 10/24/25 05:00 10/24/25 05:00 Temperature Pulse Rate 96 H 95 H Pulse Rate [Left Brachial] Respiratory Rate 22 18 Blood Pressure 183/77 183/77 Blood Pressure [Left Arm] O2 Sat by Pulse Oximetry 99 98 Oxygen Delivery Method Nasal Cannula Oxygen Flow Rate 2 FIO2% 10/24/25 05:15 10/24/25 05:19 10/24/25 05:21 Temperature Pulse Rate 98 H Pulse Rate [Left Brachial] Respiratory Rate 24 18 Blood Pressure 144/68 Blood Pressure [Left Arm] O2 Sat by Pulse Oximetry 93 L Oxygen Delivery Method Oxygen Flow Rate FIO2% 10/24/25 05:21 10/24/25 05:22 10/24/25 05:30 Temperature Pulse Rate 98 H 98 H 100 H Pulse Rate [Left Brachial] Respiratory Rate 21 21 24 Blood Pressure 144/68 Blood Pressure [Left Arm] O2 Sat by Pulse Oximetry 97 99 97 Oxygen Delivery Method Nasal Cannula Oxygen Flow Rate 2 FIO2% 10/24/25 05:30 10/24/25 05:45 10/24/25 06:00 Temperature Pulse Rate 96 H 93 H Pulse Rate [Left Brachial] Respiratory Rate 21 15 Blood Pressure 156/70 141/61 Blood Pressure [Left Arm] O2 Sat by Pulse Oximetry 97 96 Oxygen Delivery Method Nasal Cannula Oxygen Flow Rate 2 FIO2% 10/24/25 06:00 10/24/25 06:00 10/24/25 06:15 Temperature Pulse Rate 93 H 93 H Pulse Rate [Left Brachial] Respiratory Rate 16 23 Blood Pressure 141/61 Blood Pressure [Left Arm] O2 Sat by Pulse Oximetry 96 97 Oxygen Delivery Method Oxygen Flow Rate FIO2% 10/24/25 06:30 10/24/25 06:45 10/24/25 07:00 Temperature Pulse Rate 100 H 95 H Pulse Rate [Left Brachial] Respiratory Rate 27 H 26 H Blood Pressure Blood Pressure [Left Arm] O2 Sat by Pulse Oximetry 99 98 Oxygen Delivery Method Nasal Cannula Oxygen Flow Rate 2 FIO2% 10/24/25 07:00 10/24/25 07:00 10/24/25 07:15 Temperature Pulse Rate 96 H 108 H Pulse Rate [Left Brachial] Respiratory Rate 23 29 H Blood Pressure 147/65 Blood Pressure [Left Arm] O2 Sat by Pulse Oximetry 97 98 Oxygen Delivery Method Oxygen Flow Rate FIO2% 10/24/25 07:30 10/24/25 07:45 10/24/25 08:00 Temperature 98.5 F Pulse Rate 105 H 104 H 104 H Pulse Rate [Left Brachial] Respiratory Rate 19 19 18 Blood Pressure Blood Pressure [Left Arm] O2 Sat by Pulse Oximetry 97 97 98 Oxygen Delivery Method Oxygen Flow Rate FIO2% 10/24/25 08:00 10/24/25 08:15 10/24/25 08:30 Temperature Pulse Rate 99 H 102 H Pulse Rate [Left Brachial] Respiratory Rate 23 21 Blood Pressure 141/63 Blood Pressure [Left Arm] O2 Sat by Pulse Oximetry 97 98 Oxygen Delivery Method Oxygen Flow Rate FIO2% 10/24/25 08:45 10/24/25 08:45 10/24/25 09:00 Temperature Pulse Rate 98 H 96 H Pulse Rate [Left Brachial] Respiratory Rate 21 19 Blood Pressure Blood Pressure [Left Arm] O2 Sat by Pulse Oximetry 98 99 Oxygen Delivery Method Nasal Cannula Oxygen Flow Rate 2 FIO2% 28 10/24/25 09:01 10/24/25 09:01 10/24/25 09:15 Temperature Pulse Rate 98 H 96 H Pulse Rate [Left Brachial] Respiratory Rate 18 20 Blood Pressure 189/76 Blood Pressure [Left Arm] O2 Sat by Pulse Oximetry 98 99 Oxygen Delivery Method Oxygen Flow Rate FIO2% 10/24/25 09:30 10/24/25 09:45 10/24/25 10:00 Temperature Pulse Rate 95 H 92 H 104 H Pulse Rate [Left Brachial] Respiratory Rate 26 H 31 H 17 Blood Pressure Blood Pressure [Left Arm] O2 Sat by Pulse Oximetry 98 99 97 Oxygen Delivery Method Oxygen Flow Rate FIO2% 10/24/25 10:00 10/24/25 10:15 10/24/25 10:19 Temperature Pulse Rate 102 H 100 H Pulse Rate [Left Brachial] Respiratory Rate 18 12 Blood Pressure 198/80 Blood Pressure [Left Arm] O2 Sat by Pulse Oximetry 98 99 Oxygen Delivery Method Oxygen Flow Rate FIO2% 10/24/25 10:19 10/24/25 10:24 10/24/25 10:30 Temperature Pulse Rate 104 H Pulse Rate [Left Brachial] Respiratory Rate 18 31 H Blood Pressure 183/77 Blood Pressure [Left Arm] O2 Sat by Pulse Oximetry 99 Oxygen Delivery Method Oxygen Flow Rate FIO2% 10/24/25 10:45 10/24/25 11:00 10/24/25 11:00 Temperature Pulse Rate 92 H 84 Pulse Rate [Left Brachial] Respiratory Rate 19 27 H Blood Pressure 161/77 Blood Pressure [Left Arm] O2 Sat by Pulse Oximetry 97 98 Oxygen Delivery Method Oxygen Flow Rate FIO2% 10/24/25 11:15 10/24/25 11:24 10/24/25 11:30 Temperature Pulse Rate 84 81 Pulse Rate [Left Brachial] Respiratory Rate 29 H 18 16 Blood Pressure Blood Pressure [Left Arm] O2 Sat by Pulse Oximetry 98 97 Oxygen Delivery Method Oxygen Flow Rate FIO2% 10/24/25 11:45 10/24/25 12:00 10/24/25 12:00 Temperature 99.6 F Pulse Rate 82 83 Pulse Rate [Left Brachial] Respiratory Rate 21 17 Blood Pressure 166/73 Blood Pressure [Left Arm] O2 Sat by Pulse Oximetry 97 98 Oxygen Delivery Method Oxygen Flow Rate FIO2% 10/24/25 12:15 10/24/25 12:30 10/24/25 12:45 Temperature Pulse Rate 80 79 96 H Pulse Rate [Left Brachial] Respiratory Rate 21 18 19 Blood Pressure Blood Pressure [Left Arm] O2 Sat by Pulse Oximetry 97 99 93 L Oxygen Delivery Method Oxygen Flow Rate FIO2% 10/24/25 13:00 10/24/25 13:01 10/24/25 13:01 Temperature Pulse Rate 85 84 Pulse Rate [Left Brachial] Respiratory Rate 20 20 Blood Pressure 158/63 Blood Pressure [Left Arm] O2 Sat by Pulse Oximetry 98 98 Oxygen Delivery Method Oxygen Flow Rate FIO2% 10/24/25 13:15 10/24/25 13:30 10/24/25 13:45 Temperature Pulse Rate 81 80 79 Pulse Rate [Left Brachial] Respiratory Rate 24 21 23 Blood Pressure Blood Pressure [Left Arm] O2 Sat by Pulse Oximetry 98 97 97 Oxygen Delivery Method Oxygen Flow Rate FIO2% 10/24/25 14:00 10/24/25 14:00 10/24/25 14:15 Temperature Pulse Rate 79 78 Pulse Rate [Left Brachial] Respiratory Rate 20 20 Blood Pressure 140/60 Blood Pressure [Left Arm] O2 Sat by Pulse Oximetry 97 97 Oxygen Delivery Method Oxygen Flow Rate FIO2% 10/24/25 14:30 10/24/25 14:45 10/24/25 15:00 Temperature Pulse Rate 78 75 Pulse Rate [Left Brachial] Respiratory Rate 21 19 Blood Pressure 134/63 Blood Pressure [Left Arm] O2 Sat by Pulse Oximetry 97 97 Oxygen Delivery Method Oxygen Flow Rate FIO2% 10/24/25 15:00 10/24/25 15:15 10/24/25 15:30 Temperature Pulse Rate 76 75 74 Pulse Rate [Left Brachial] Respiratory Rate 19 19 19 Blood Pressure Blood Pressure [Left Arm] O2 Sat by Pulse Oximetry 97 97 97 Oxygen Delivery Method Oxygen Flow Rate FIO2% 10/24/25 15:45 10/24/25 16:00 10/24/25 16:15 Temperature 98.4 F Pulse Rate 74 78 78 Pulse Rate [Left Brachial] Respiratory Rate 19 20 19 Blood Pressure Blood Pressure [Left Arm] O2 Sat by Pulse Oximetry 98 98 98 Oxygen Delivery Method Oxygen Flow Rate FIO2% 10/24/25 16:18 10/24/25 16:18 10/24/25 16:30 Temperature Pulse Rate 76 77 Pulse Rate [Left Brachial] Respiratory Rate 18 19 Blood Pressure 126/58 Blood Pressure [Left Arm] O2 Sat by Pulse Oximetry 97 92 L Oxygen Delivery Method Oxygen Flow Rate FIO2% 10/24/25 16:45 10/24/25 17:02 10/24/25 17:15 Temperature Pulse Rate 76 83 77 Pulse Rate [Left Brachial] Respiratory Rate 21 Blood Pressure Blood Pressure [Left Arm] O2 Sat by Pulse Oximetry 98 96 96 Oxygen Delivery Method Oxygen Flow Rate FIO2% 10/24/25 17:30 10/24/25 17:45 10/24/25 18:00 Temperature Pulse Rate 81 86 79 Pulse Rate [Left Brachial] Respiratory Rate Blood Pressure Blood Pressure [Left Arm] O2 Sat by Pulse Oximetry 97 95 93 L Oxygen Delivery Method Oxygen Flow Rate FIO2% 10/24/25 19:00 10/24/25 19:00 10/24/25 20:00 Temperature 98.3 F Pulse Rate 80 80 Pulse Rate [Left Brachial] Respiratory Rate 18 16 Blood Pressure 131/60 131/60 Blood Pressure [Left Arm] O2 Sat by Pulse Oximetry 95 95 Oxygen Delivery Method Room Air Oxygen Flow Rate FIO2% 10/24/25 20:20 10/24/25 23:40 10/25/25 00:05 Temperature 98.3 F Pulse Rate 89 Pulse Rate [Left Brachial] Respiratory Rate 16 Blood Pressure 181/76 175/75 Blood Pressure [Left Arm] O2 Sat by Pulse Oximetry 95 Oxygen Delivery Method Nasal Cannula Oxygen Flow Rate 2 FIO2% 28 10/25/25 01:30 10/25/25 04:00 Temperature 98.9 F Pulse Rate 88 Pulse Rate [Left Brachial] Respiratory Rate 19 Blood Pressure 146/76 136/60 Blood Pressure [Left Arm] O2 Sat by Pulse Oximetry 95 Oxygen Delivery Method Oxygen Flow Rate FIO2% Labs: Laboratory Last Values WBC 10.7 X10^3/uL (3.6-10.0) H 10/25/25 04:40 RBC 4.70 X10^6/uL (3.5-5.4) 10/25/25 04:40 Hgb 13.3 g/dL (12.0-16.0) 10/25/25 04:40 Hct 39.6 % (36.0-47.0) 10/25/25 04:40 MCV 84.2 fL (80.0-100.0) 10/25/25 04:40 MCH 28.2 pg (27.0-34.0) 10/25/25 04:40 MCHC 33.6 g/dL (33.0-35.0) 10/25/25 04:40 RDW 14.7 % (11.6-16.5) 10/25/25 04:40 Plt Count 264 X10^3/uL (150.0-450.0) 10/25/25 04:40 MPV 9.2 fL (7.4-11.0) 10/25/25 04:40 Neut % (Auto) 51.0 % (42.0-75.0) 10/25/25 04:40 Lymph % (Auto) 36.9 % (21.0-51.0) 10/25/25 04:40 [place] % (Auto) 10.2 % (0.0-13.0) 10/25/25 04:40 Eos % (Auto) 0.5 % (0.9-2.9) L 10/25/25 04:40 Baso % (Auto) 1.4 % (0.2-1.0) H 10/25/25 04:40 Neut # (Auto) 5.5 x10^3/uL (2.2-4.8) H 10/25/25 04:40 Lymph # (Auto) 3.9 X10^3/uL (1.3-2.9) H 10/25/25 04:40 [place] # (Auto) 1.1 x10^3/uL (0.3-0.8) H 10/25/25 04:40 Eos # (Auto) 0.0 x10^3/uL (0.0-0.2) 10/25/25 04:40 Baso # (Auto) 0.2 X10^3/uL (0.0-0.1) H 10/25/25 04:40 Absolute Nucleated RBC 0.2 /100WBC 10/25/25 04:40 PT 13.4 SECONDS (11.8-14.3) 10/23/25 20:40 INR Target Range - 10/23/25 20:40 INR 1.01 (0.8-1.3) 10/23/25 20:40 APTT 30.3 SECONDS (22.9-36.5) 10/23/25 20:40 PTT Comment - 10/23/25 20:40 Sodium 137 mmol/L (136-145) 10/25/25 04:40 Corrected Sodium 137 mmol/L (136-145) 10/25/25 04:40 Potassium 4.5 mmol/L (3.5-5.1) 10/25/25 04:40 Chloride 103 mmol/L (98-107) 10/25/25 04:40 Carbon Dioxide 25.2 mmol/L (21-32) 10/25/25 04:40 BUN 16 mg/dL (7-18) 10/25/25 04:40 Creatinine 0.81 mg/dL (0.55-1.02) 10/25/25 04:40 Est GFR (MDRD) Af Amer > 60 (>60) 10/25/25 04:40 Est GFR (MDRD) Non-Af > 60 (>60) 10/25/25 04:40 Glucose 115 mg/dL (65-99) H 10/25/25 04:40 Calcium 8.6 mg/dL (8.5-10.1) 10/25/25 04:40 Corrected Calcium 9.3 mg/dL (8.5-10.1) 10/25/25 04:40 Magnesium 2.2 mg/dL (2.0-2.9) 10/25/25 04:40 Total Bilirubin 0.40 mg/dL (0.2-1.0) 10/25/25 04:40 AST 21 Units/L (15-37) 10/25/25 04:40 ALT 14 Units/L (12-78) 10/25/25 04:40 Alkaline Phosphatase 63 Units/L (46-116) 10/25/25 04:40 Creatine Kinase 69 Units/L (26-192) 10/23/25 20:40 Troponin I High Sens 13.2 ng/L (4.0-60.0) 10/23/25 23:07 B-Natriuretic Peptide 754 pg/mL (0-79) H 10/24/25 04:32 Total Protein 6.9 g/dL (6.4-8.2) 10/25/25 04:40 Albumin 3.1 g/dL (3.4-5.0) L 10/25/25 04:40 Globulin 3.8 g/dL (2.5-4.5) 10/25/25 04:40 Albumin/Globulin Ratio 0.8 Ratio (1.1-2.1) L 10/25/25 04:40 Specimen Type Clean catch urine 10/23/25 21:44 Urine Color Pale yellow (YELLOW) 10/23/25 21:44 Urine Appearance Clear (CLEAR) 10/23/25 21:44 Urine pH 6.0 (5.0 - 8.0) 10/23/25 21:44 Ur Specific [place] 1.020 (1.000-1.030) 10/23/25 21:44 Urine Protein 1+ (NEGATIVE) 10/23/25 21:44 Urine Glucose (UA) Negative (NEGATIVE) 10/23/25 21:44 Urine Ketones Negative (NEGATIVE) 10/23/25 21:44 Urine Blood 2+ (NEGATIVE) 10/23/25 21:44 Urine Nitrite Negative (NEGATIVE) 10/23/25 21:44 Urine Bilirubin Negative (NEGATIVE) 10/23/25 21:44 Urine Urobilinogen Normal (NORMAL) 10/23/25 21:44 Ur Leukocyte Esterase 1+ (NEGATIVE) 10/23/25 21:44 Urine RBC 0-2 /HPF (0-3) 10/23/25 21:44 Urine WBC 0-2 /HPF (0-5) 10/23/25 21:44 Ur Squamous Epith Cells Rare /HPF (NEGATIVE) 10/23/25 21:44 Urine Bacteria Negative /HPF (NEGATIVE) 10/23/25 21:44 Ur Culture Indicated? No/not indicated 10/23/25 21:44 SARS-CoV-2 (PCR) Negative (NEGATIVE) 10/23/25 20:47 Influenza Type A (PCR) Negative (NEGATIVE) 10/23/25 20:47 Influenza Type B (PCR) Negative (NEGATIVE) 10/23/25 20:47 RSV (PCR) Negative (NEGATIVE) 10/23/25 20:47 Reason For Visit: MALIGNANT HTN, VERTIGO Discharge Diagnosis All Active Problems (Updated 10/24/25 @ 11:12 by Juliana Villa MD) H/O prosthetic aortic valve replacement (Chronic) HLD (hyperlipidemia) (Chronic) CAD (coronary artery disease) (Chronic) Vertigo (Acute) Malignant hypertension (Acute) UTI (urinary tract infection) (Acute) Sprain and strain of right ankle (Acute) Bronchitis (Acute) Abdominal pain (Acute) Diverticulitis (Acute) Contusion of hand, right (Acute) Plan of Treatment: Continue with present treatment and follow up plan. Pt is to keep follow up appointment as instructed and take medications as ordered. Discharge Medications Discharge Medications: Penicillins Allergy (Verified 10/23/25 20:54) CONTINUE taking the following medications lorazepam 0.5 mg tablet 0.5 mg PO BID PRN 10/23/25 [History] New Prescriptions lisinopril 20 mg tablet 20 mg PO DAILY 30 days #30 tabs 10/25/25 [Rx] meclizine 25 mg tablet 12.5 mg (1/2 x 25 mg) PO TID PRN 10 days #30 tabs 10/25/25 [Rx] Discharge Disposition Discharge Disposition: home Discharge Condition: stable Discharge Plan Discharge Plan Hospital Course: Patient is a 75-year-old female with a past medical history of hypertension, CAD, aortic valve replacement, hyperlipidemia, depression, anxiety and GERD presented with dizziness and headache. She states her symptoms started with dizziness, felt like the room was spinning along with nausea. She does not monitor her blood pressure regularly. ER workup included labs which did not show any pertinent abnormalities. Her blood pressure in the ER was noted to be systolic in the 200s, highest 236/96. She was given IV hydralazine x 2 and then p.o. hydralazine x 1. Her blood pressure did improved to systolic in the 140s. She also got meclizine which helped with her vertigo. CT brain was negative for any acute changes. Labs are monitored daily and electrolytes replaced as needed. She was started on lisinopril daily. Her blood pressure improved. She was doing better and able to ambulate. She was stable to be discharged home on lisinopril and meclizine. She will follow-up with PCP as scheduled. Patient Disposition: HOME, SELF-CARE Condition: Stable Health Concerns: Post Hospitalization: new medications and changes needed to prevent readmission or further decline. Pt educated and given instructions on all concerns. Plan of Treatment: Continue with present treatment and follow up plan. Pt is to keep follow up appointment as instructed and take medications as ordered. Prescription drug monitoring program results: PDMP reviewed and no concerns identified Prescriptions: New lisinopril 20 mg Tablet 20 mg PO DAILY 30 Days Qty: 30 0RF meclizine 25 mg Tablet 12.5 mg PO TID PRN10 Days Qty: 30 0RF Continued trazodone 50 mg tablet 50 mg PO QPM meloxicam 15 mg tablet 15 mg PO QDAY pantoprazole 40 mg tablet,delayed release (DR/EC) 40 mg PO QDAY metoprolol succinate 25 mg tablet extended release 24 hr 25 mg PO QDAY ezetimibe 10 mg tablet 10 mg PO QDAY duloxetine 60 mg capsule,delayed release(DR/EC) 60 mg PO QDAY ibandronate 150 mg tablet 150 mg PO QMONTH levocetirizine 5 mg tablet 5 mg PO QPM Eliquis 5 mg tablet 5 mg PO BID lorazepam 0.5 mg tablet 0.5 mg PO BID PRN tramadol 50 mg tablet 50 mg PO BID MDD 2 PRN (Reason: pain) Qty: 10 0RF Orders to Discharge Patient Discharge Orders: Discharge (Routine); Ordered 10/25/25 Ordered By: Juliana Villa Follow ups/Referrals Follow ups/Referrals: Gretchen Odom [Primary Care Provider, Unknown] - 3 days Instructions Instructions: Meclizine tablets or capsules, Form - Blood Pressure Record Sheet, Hypertension, Adult, [id number], Lisinopril tablets, Dizziness, Managing Your Hypertension Stand Alone Forms: Excuse From Work or School, Find Help Web Site, Post Hospital Follow Up Care Print Language: TOGOLESE
== END 2025-10-25 13:05 | disposition home or self-care (01) ==
LOC: ER 20:25 → ICU 20:25
PROVIDERS: ADMIT Internal Medicine; ATTEND Internal Medicine